=== PATIENT | female | born 1955 | race Caucasian/White ===

== ENCOUNTER 2023-03-29 17:27 | Inpatient (IN) | payer MEDICARE, MEDICAID, SELFPAY ==
--- NOTE | ~2023-03-29 | XR_ITS ---
EXAMINATION: XR HIP, RIGHT CLINICAL INFORMATION: Reason for Exam fall 3 days ago COMPARISON: None TECHNIQUE: Two views of the hip. One view of the pelvis. FINDINGS: Subtle lucency involving the right femoral head only appreciated on this single view, unclear if this could potentially reflect a nutrient channel however a nondisplaced fracture would be difficult to exclude. Mild degenerative changes of the hips with subchondral sclerosis. Soft tissues are unremarkable. XR/XR hip RT w PEL1V IMPRESSION: * Subtle lucency involving the right femoral head only appreciated on this single view, unclear if this could potentially reflect a nutrient channel however a nondisplaced fracture would be difficult to exclude. Consider a CT hip for further evaluation. * Mild degenerative changes of the hips.
--- NOTE | ~2023-03-29 | CT_ITS ---
EXAMINATION: CT HEAD WITHOUT CONTRAST CLINICAL INFORMATION: Fall 2 days ago. Rule out intracranial hypertension. COMPARISON: None. TECHNIQUE: Contiguous axial imaging was performed from the skullbase to vertex without intravenous administration of contrast. This CT examination was performed using dose optimization techniques as appropriate, variously including the following: *Automated exposure control *Adjustment of mA and/or kV according to patient size (this includes techniques or standardized protocols for targeted exams where dose is matched to indication/reason for exam; i.e. extremities or head) *Use of iterative reconstruction technique DLP: 679 mGy-cm. FINDINGS: The ventricles are prominent relative to the lateral sulcal spaces and sylvian fissures. There is paucity of the medial frontoparietal sulci around the interhemispheric fissure superior to the lateral ventricles. The callosal angle is narrowed, measuring 74 degrees. Smith index measures 0.35. There is no evidence of acute intracranial hemorrhage or territorial infarction. No abnormal mass effect or midline shift is seen. No extra-axial fluid collections are identified. The cerebellar tonsils are normal in position. Moderate diffuse parenchymal volume loss noted. The osseous structures and soft tissues are normal. The mastoid air cells and visualized portions of the paranasal sinuses are well aerated. CT/CT head/brain wo IV con IMPRESSION: No acute intracranial hemorrhage or territorial infarction. Prominence of the lateral and third ventricles with a narrow callosal angle and an increased Smith index. Imaging findings may reflect normal pressure hydrocephalus and clinical correlation is recommended.
--- NOTE | ~2023-03-29 | CT_ITS ---
EXAMINATION: CT HIP WITHOUT CONTRAST, RIGHT CLINICAL INFORMATION: Pain. Possible right femoral head fracture. COMPARISON: Right hip and pelvic radiographs dated 04/04/2023. TECHNIQUE: Contiguous axial CT images of the right hip were obtained without contrast. Multiplanar reformats were provided and reviewed. This CT examination was performed using dose optimization techniques as appropriate, variously including the following: *Automated exposure control *Adjustment of mA and/or kV according to patient size (this includes techniques or standardized protocols for targeted exams where dose is matched to indication/reason for exam; i.e. extremities or head) *Use of iterative reconstruction technique DLP: 164 mGy-cm FINDINGS: No acute fracture or dislocation. Femoral head well seated within the acetabulum. No significant joint space narrowing or marginal osteophytes. No subchondral sclerosis. No concerning lytic or blastic osseous lesion. No evidence of avascular necrosis. Partially visualized and distended urinary bladder. Otherwise, the visualized intrapelvic structures are grossly unremarkable. No abnormal soft tissue mass or fluid collection. No significant right hip joint effusion. The visualized muscles and tendons are grossly intact, however, evaluation is limited on CT examination. CT/CT hip RT wo IV con IMPRESSION: 1. No acute fracture or dislocation. No evidence of avascular necrosis. 2. Partially visualized and distended urinary bladder.
[2023-03-29 18:00] VITALS: BP 198/95; PULSE 89; RESP 18; TEMP 36.3; O2SAT 98
--- NOTE | 2023-03-29 18:12 | PC.ADMIT ---
PT ARRIVED ONTO THE UNIT AT 1800 VIA W/C VAN. PT IS DRESSED NEATLY AND GROOMED APPROPRIATELY. PT WAS A HOSPITAL TO HOSPITAL TRANSFER, ARRIVING FROM [facility]. PT. MAKES GOOD EYE CONTACT WHILE SPEAKING, AND SHE SPEAKS IN A NORMAL TONE AND VOLUME. SHE IS CALM AND COOPERATIVE. PT. WAS VERY HUNGRY WHEN SHE ARRIVED AND WAS GIVEN FOOD. PT. BP WAS 198/95, PULSE 89. PT. C/O ANGULO, DIZZINESS, AND BLURRY VISION. DENIES CHEST PAIN. REFINING EQUIPMENT OPERATOR PROVIDER, DR. CONNOLLY WAS NOTIFIED, AND PT. WAS PROVIDED WITH HYDRALAZINE 20MG WELL TYLENOL 650MG. N2N REPORTED THAT THIS PT HAS A LONG HX OF MEDICATION NON-COMPLIANCE, HOWEVER, PT TOOK THE ABOVE LISTED MEDICATIONS WITHOUT ISSUE. PT SIGNED A CONDITIONAL VOLUNTARY FORM. PT. WAS SENT TO [facility] FROM HER FACILITY, D/T A HYPO-MANIC STATE. N2N REPORTS THAT THIS PT. WILL SLEEP 20-45 MINUTES/NIGHT. N2N REPORTS THAT THIS PT. CAN BE VERY ACCUSATORY AND WILL STATE THAT SOMEONE DID SOMETHING TO HER, THATS HE HAS JUST DONE TO A STAFF PERSON. SHE ALSO REPORTED THAT THIS PT. WILL OFTEN REFUSE TO HAVE LABS COMPLETED. PT ENDORSES VH, I SEE BODIES ON THE BED SOMETIMES, I ALWAYS SEE BUGS . PT. DENIES AH, SI/HI.
[2023-03-29] MEDS: Acetaminophen 325 MG TABLET 650 MG PO (18:20)
[2023-03-29] MEDS: hydrALAZINE HCl 10 MG TABLET 20 MG PO (18:22)
[2023-03-29] MEDS: Divalproex Sodium ER 250 MG TAB.ER.24H PO ×2 (18:39→20:26)
--- NOTE | 2023-03-29 19:09 | P.CONHOSP_ITS ---
History of Present Illness Data of Consult Service Date: 03/29/23 Primary Care Provider: Unknown Physician HPI Reason for consult: Admission history and physical Pt is a 67-year-old female with a PMH significant for HTN, COPD, anemia, CKD 3, partial seizure disorder, schizoaffective disorder, bipolar disorder, depression who is admitted to [facility] for increasing agitated behavior, now in a manic state with vague visual hallucination of seeing bugs. Medical consult for admission H&P. At time of interview and examination patient noted to be in a manic phase with pressured speech and tangential thought. Patient thus incapable of providing a reliable HPI. Review of Systems Review of Systems: Unable to obtain due to patient's mentation. [facility] Social History Advance Directives: No Advance Directives Information Provided: No Meds Allergies Allergy/AdvReac Type Severity Reaction Status Date / Time almotriptan Allergy Unknown Unverified 03/29/23 18:08 aspirin Allergy Unknown Unverified 03/29/23 17:52 diphenhydramine Allergy Unknown Unverified 03/29/23 17:52 [From Benadryl] oxycodone Allergy Unknown Unverified 03/29/23 17:52 pseudoephedrine Allergy Unknown Unverified 03/29/23 17:52 mushroom AdvReac Abdominal Verified 03/29/23 17:43 Pain red dye Allergy Unknown Uncoded 03/29/23 17:52 sulpha drugs Allergy Unknown Uncoded 03/29/23 17:52 Active Medications: Current Medications Acetaminophen (Acetaminophen 325 Mg Tablet) 650 mg PO Q6H PRN PRN Reason: Headache/Pain Mild Scale (1-3) Last Admin: 03/29/23 18:20 Dose: 650 mg Al Hydroxide/Mg Hydroxide (Magnesium Hydrox/Alum Hydrox 30 Ml Oral.Susp) 30 ml PO Q6H PRN PRN Reason: Heartburn/Nausea Divalproex Sodium (Divalproex Sodium Er 250 Mg Tab.Er.24h) 250 mg PO BID MELONY Lorazepam (Lorazepam 0.5 Mg Tablet) 0.5 mg PO TID PRN PRN Reason: gay Magnesium Hydroxide (Milk Of Magnesia 30 Ml Oral.Susp) 30 ml PO DAILY PRN PRN Reason: Constipation Mirtazapine (Mirtazapine 7.5 Mg Tablet) 7.5 mg PO BEDTIME MELONY Nicotine Polacrilex (Nicotine Polacrilex 2 Mg Gum) 4 mg BUCCAL Q2H PRN PRN Reason: Nicotine Cravings Olanzapine (Olanzapine 2.5 Mg Tablet) 2.5 mg PO TID PRN PRN Reason: agitation Risperidone (Risperidone 3 Mg Tablet) 3 mg PO BEDTIME MELONY Physical Exam Vital Signs and Narrative: Vital Signs: Last Vital Signs Temp 97.4 F 03/29/23 18:00 Pulse 89 03/29/23 18:00 Resp 18 03/29/23 18:00 BP 198/95 H 03/29/23 18:00 Pulse Ox 98 03/29/23 18:00 O2 Del Method Room Air 03/29/23 18:00 General: AOx3, no acute distress Resp: CTA bilaterally CVS: S1, S2, RRR GI: +BS, NT, no distention Skin: No rash Neuro: Cranial nerves II-XII grossly intact bilaterally. Motor grossly intact bilaterally Extremities: Mild bilateral edema Psych: Manic with pressured speech and tangential thought Assessment and Plan (1) Routine history and physical examination of adult: Status: Acute Plan Pt is a 67-year-old female with a PMH significant for HTN, COPD, anemia, CKD 3, partial seizure disorder, schizoaffective disorder, bipolar disorder, depression who is admitted to [facility] for increasing agitated behavior, now in a manic state with vague visual hallucination of seeing bugs. Medical consult for admission H&P. Mood disorder Plan as per Psychiatry HTN Patient hypertensive at 198/95 at time of admission Pt recently given hydralazine, systolic pressure now in the 170s Continue amlodipine, hydralazine Closely monitor BP until it normalizes Partial seizure disorder Continue Keppra, Lamictal COPD Does not appear to be an acute exacerbation Continue home inhalers Thank you for allowing us to participate in the care of this patient. Signing off at this time. Please let us know if there are any acute complaints or questions. Time Spent With Patient Time: Total time managing care of this patient today ____ minutes.
[2023-03-29 19:30] VITALS: BP 174/86; PULSE 100; RESP 22; TEMP 36.2; O2SAT 97
[2023-03-29] MEDS: risperiDONE 3 MG TABLET PO (20:26)
[2023-03-29] MEDS: Mirtazapine 7.5 MG TABLET PO (20:26)
[2023-03-30] MEDS: LORazepam 0.5 MG TABLET PO ×2 (02:32→20:44)
[2023-03-30 06:39] LABS: Alanine Aminotransferase 16 U/L (0-31); Albumin Level 3.7 g/dL (3.5-5.0); Alkaline Phosphatase 99 U/L (39-117); Anion Gap 14 (12-20); Aspartate Amino Transferase 17 U/L (5-31); Bilirubin Total 0.3 mg/dL (0.0-1.0); Blood Urea Nitrogen 44 mg/dL (9-16); Carbon Dioxide 24 mmol/L (22-29); Chloride 110 mmol/L (96-108); Cholesterol 151 mg/dL; Estimated Glomerular Filt Rate 25; Glucose Random 106 mg/dL (60-115); HDL Cholesterol 42 mg/dL; LDL Cholesterol Calculated 96 mg/dl; Potassium 3.9 mmol/L (3.3-5.1); Sodium 144 mmol/L (135-145); Total Protein 6.8 g/dL (6.5-8.0); Triglycerides 66 mg/dL
[2023-03-30 08:38] LABS: Estimated Average Glucose 100 mg/dL; Hemoglobin A1c % 5.1 %
[2023-03-30] MEDS: Divalproex Sodium ER 250 MG TAB.ER.24H PO ×2 (09:15→20:29)
[2023-03-30] MEDS: Magnesium Hydrox/Alum Hydrox 30 ML ORAL.SUSP PO (11:17)
[2023-03-30] MEDS: Acetaminophen 325 MG TABLET 650 MG PO ×2 (11:17→20:36)
[2023-03-30 11:19] VITALS: BMI 24.3
--- NOTE | 2023-03-30 12:36 | HO.PSYADMNOT ---
HPI Date of Service: 03/30/23 Chief Complaint: gay Sources of Information: patient interviewed, chart reviewed and crisis/core team assessment reviewed Additional Sources of Information: Notes from half-way HPI Subjective Notes: Conditional Voluntary Healthcare Proxy: No Guardianship: No Medical Problems Affecting Mental Status: Yes (Chronic Renal failure) Narrative: Brooklynn is a 67-year-old white, single, disabled woman who has been at [facility]. Patient has been refusing medications selectively sometimes based on the color red. She has also been refusing trazodone, mirtazapine, melatonin because of nightmares. She has been showing some mild hypomanic symptoms. Previously she had been on lithium but it was discontinued because of renal failure Seroquel has been at times helpful in the past with her sleep and manic symptoms but she years self said it did not agree with her. She carries a diagnosis of bipolar/schizoaffective disorder. She is currently on Lamictal 275 mg, risperidone 3 mg,. Additionally she is being treated for seizures and is on Keppra 1000 mg b.i.d.,Levetiracetam 1000 mg b.i.d.. She has had a number of hospitalizations psychiatrically since she was in her 20s. She has had suicidal ideations and multiple attempts with cutting and overdoses. She denies any current suicidal ideations. She has been having some visual hallucinations. Past Psychiatric History: Numerous inpatient hospitalizations since she was in her 20s Medical Evaluation Reviewed: Hospitalist William Pending [facility] Narrative: Positive for seizure disorder, hypertension, COPD, headaches Family History: Unknown Social History: Brooklynn is 1 of 4 siblings. Her father is living, age 94 and she has minimal to no contact with him. She does have 1 brother and 2 sisters, 1 of whom lives in [place] and she is in touch with her. 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 She has been in her current half-way placement since October of 2022. She has never and has no children Substance History: None Trauma History: None Diagnostics Vital Signs (24Hr): Vital Signs - 24 hr 03/29/23 18:00 03/29/23 19:30 Temperature 97.4 F 97.2 F Pulse Rate 89 100 Respiratory Rate 18 22 H Blood Pressure 198/95 H 174/86 H Pulse Oximetry 98 97 Oxygen Delivery Method Room Air Room Air BMI result Body Mass Index 24.3 Labs 03/30/23 06:19 Labs: Laboratory Results - last 48 hr 03/30/23 03/30/23 06:19 06:19 Sodium 144 Potassium 3.9 Chloride 110 H Carbon Dioxide 24 Anion Gap 14 BUN 44 H Creatinine 2.01 H Estim Creat Clear Calc TNP Estimated GFR 25 Random Glucose 106 Estimat Average Glucose 100 Hemoglobin A1c % 5.1 Calcium 10.0 Total Bilirubin 0.3 AST 17 ALT 16 Alkaline Phosphatase 99 Total Protein 6.8 Albumin 3.7 Triglycerides 66 Cholesterol 151 LDL Cholesterol, Calc 96 HDL Cholesterol 42 Meds/Allergies Meds Home Medications Medication Instructions Recorded Confirmed Type Lidocaine Viscous 15 ml buccal Q6-8H PRN Pain 03/30/23 03/30/23 History Maalox Plus 30 ml PO Q6-8H PRN Indigestion 03/30/23 03/30/23 History Multi Minerals 1 tab PO DAILY 03/30/23 03/30/23 History Risperdal 3 mg DAILY 03/30/23 03/30/23 History Tums 500 500 mg PO PRN Heartburn 03/30/23 History Vitamin 03/30/23 History acetaminophen 2 tab PO Q4-5H PRN Fever Or Pain 03/30/23 03/30/23 History amlodipine 5 mg PO DAILY 03/30/23 03/30/23 History bethanechol chloride 10 mg TID 03/30/23 03/30/23 History calcium carbonate 500 mg PO Q3-6H PRN Heartburn 03/30/23 03/30/23 History famotidine 20 mg PO DAILY@0630 03/30/23 03/30/23 History ferrous sulfate 325 mg PO DAILY 03/30/23 03/30/23 History hydralazine 10 mg tablet 10 mg PO Q6-8H PRN Hypertension 03/30/23 03/30/23 History lamotrigine 100 mg tablet 100 mg PO QPM 03/30/23 03/30/23 History (Lamictal) lamotrigine 150 mg tablet 150 mg PO DAILY 03/30/23 03/30/23 History (Lamictal) lamotrigine 25 mg tablet (Lamictal) 5 mg PO QPM 03/30/23 03/30/23 History levetiracetam 1,000 mg tablet 1,000 mg PO BID 03/30/23 03/30/23 History (Keppra) loperamide 2 mg PO Q6-8H PRN Diarrhea 03/30/23 03/30/23 History melatonin 12 mg PO QPM 03/30/23 03/30/23 History mirtazapine 7.5 mg PO QPM 03/30/23 03/30/23 History ondansetron 4 mg PO Q6-8H PRN Nausea And 03/30/23 03/30/23 History Vomiting oxybutynin chloride 5 mg PO BID 03/30/23 03/30/23 History polyethylene glycol 3350 17 g PO DAILY PRN Constipation 03/30/23 03/30/23 History quetiapine 50 mg tablet (Seroquel) 50 mg PO QPM 03/30/23 03/30/23 History senna 2 tab PO BID PRN Constipation 03/30/23 03/30/23 History simethicone 80 mg PO Q8-10H PRN Flatulence 03/30/23 03/30/23 History Allergies Allergies Allergy/AdvReac Type Severity Reaction Status Date / Time almotriptan Allergy Unknown Verified 03/30/23 11:28 aspirin Allergy Unknown Verified 03/30/23 11:28 diphenhydramine Allergy Unknown Verified 03/30/23 11:28 [From Benadryl] oxycodone Allergy Unknown Verified 03/30/23 11:28 pseudoephedrine Allergy Unknown Verified 03/30/23 11:28 mushroom AdvReac Abdominal Verified 03/30/23 11:28 Pain red dye Allergy Unknown Uncoded 03/29/23 17:52 sulpha drugs Allergy Unknown Uncoded 03/29/23 17:52 Mental Status Exam Mental Status Exam Narrative: Brooklynn was seen the morning after her admission. She is alert, oriented to place, person, the year and the month. She is able to give moderate amount of adequate information. Speech is normal. Good eye contact. Affect is appropriate and varied. No signs of mood elevation or euphoria. No acute signs of psychosis but admits to some visual hallucinations which she attributes to some of her medications which she has been refusing including trazodone, melatonin and mirtazapine. She denies any suicidal ideations. Cognitively she is intact. Judgment is intact Assessment & Plan Assessment & Plan (1) Bipolar 1 disorder, mixed, mild: Status: Acute Code(s): F31.61 - Bipolar disorder, current episode mixed, mild Plan Current home medications were reviewed and continued. Contacts to be made with her half-way in treaters next week by treatment team here. No changes were made today Patient educated on: diagnosis and medication risk/benefits Reason for continued inpatient stay Substantial Risk for: med/psych decompensation Statement Statement: I have reviewed the history and physical and performed a pertinent examination on my patient. No changes have occurred unless specified. If the History and Physical was not performed prior to admission, the Hospitalist's service will be consulted for completing the admission physical. Time Spent With Patient Time: Total time managing care of this patient today ____ minutes.
[2023-03-30] MEDS: Calcium Carbonate 750 MG TAB.CHEW PO (17:19)
[2023-03-30 18:00] VITALS: BP 190/86; PULSE 97; RESP 20; TEMP 36.1; O2SAT 98
[2023-03-30] MEDS: lamoTRIgine 25 MG TABLET PO (20:28)
[2023-03-30] MEDS: oxyBUTYnin chloride 5 MG TABLET PO (20:28)
[2023-03-30] MEDS: lamoTRIgine 100 MG TABLET PO (20:28)
[2023-03-30] MEDS: levETIRAcetam 1,000 MG TABLET 1000 MG PO (20:29)
[2023-03-30] MEDS: risperiDONE 3 MG TABLET PO (20:29)
[2023-03-30] MEDS: hydrALAZINE HCl 10 MG TABLET PO (20:29)
[2023-03-30 22:01] VITALS: BP 175/80; PULSE 98; O2SAT 97
[2023-03-31] MEDS: Famotidine 20 MG TABLET PO (04:47)
[2023-03-31 05:15] VITALS: BP 191/91; PULSE 90; RESP 20
[2023-03-31] MEDS: amLODIPine Besylate 5 MG TABLET PO (05:38)
[2023-03-31 08:53] VITALS: BP 153/67; PULSE 79; RESP 16; TEMP 36.6; O2SAT 97
[2023-03-31] MEDS: oxyBUTYnin chloride 5 MG TABLET PO ×2 (08:58→20:39)
[2023-03-31] MEDS: Divalproex Sodium ER 250 MG TAB.ER.24H PO ×2 (08:58→20:39)
[2023-03-31] MEDS: levETIRAcetam 1,000 MG TABLET 1000 MG PO ×2 (08:58→20:41)
[2023-03-31] MEDS: Multivitamin TABLET 1 TAB PO (08:59)
[2023-03-31] MEDS: Ferrous Sulfate 324 MG TABLET.DR PO (08:59)
[2023-03-31] MEDS: lamoTRIgine 25 MG TABLET 150 MG PO ×2 (09:00→20:42)
[2023-03-31] MEDS: risperiDONE 3 MG TABLET PO ×2 (09:00→20:40)
--- NOTE | 2023-03-31 10:18 | P.PNPSI_ITS ---
Subjective Subjective Date of Service: 03/31/23 Reason For Visit: gay Subjective Notes: Conditional Voluntary Healthcare Proxy: No Guardianship: No Medical Problems Affecting Mental Status: No Interim History: Patient was seen and discussed in rounds today. Records and plans were reviewed. She did have some elevation of her blood pressure and was seen by the hospitalist and they recommended increasing her Norvasc to 10 mg which I did. This morning her blood pressure is slightly 153/67. She wanted me to take out her Remeron, Seroquel, melatonin and trazodone which she has not taken for some time and states that they gave her nightmares. I did discontinue them. On admission orders she was placed on Depakote by Dr. Ramírez villarreal which I kept her on for now. It may need to be reviewed and increased to a more appropriate dosage this week. Eating adequately and slept okay. No other changes were made Medication Compliance: Yes Side effects from medications: Yes (Mentioned above) Attending Groups: Yes Review of Systems Acute medical concerns: No Review of Systems Review of Systems Yes all other systems are reviewed and are negative Mental Status Exam Mental Status Exam Narrative: In today's visit she is alert, oriented and pleasant. Normal speech. Good eye contact. Affect is appropriate and varied. No signs of depression or hypomania. No signs of psychosis. Cognitively he is intact. Judgment is intact Diagnostics Vital Signs (24Hr): Vital Signs - 24 hr 03/30/23 18:00 03/30/23 22:01 03/31/23 05:15 Temperature 97 F Pulse Rate 97 98 90 Respiratory Rate 20 20 Blood Pressure 190/86 H 175/80 H 191/91 H Pulse Oximetry 98 97 Oxygen Delivery Method Room Air Room Air 03/31/23 08:53 Temperature 98 F Pulse Rate 79 Respiratory Rate 16 Blood Pressure 153/67 H Pulse Oximetry 97 Oxygen Delivery Method Room Air BMI result Body Mass Index 24.3 Labs 03/30/23 06:19 Labs: Laboratory Results - last 48 hr 03/30/23 03/30/23 06:19 06:19 Sodium 144 Potassium 3.9 Chloride 110 H Carbon Dioxide 24 Anion Gap 14 BUN 44 H Creatinine 2.01 H Estim Creat Clear Calc TNP Estimated GFR 25 Random Glucose 106 Estimat Average Glucose 100 Hemoglobin A1c % 5.1 Calcium 10.0 Total Bilirubin 0.3 AST 17 ALT 16 Alkaline Phosphatase 99 Total Protein 6.8 Albumin 3.7 Triglycerides 66 Cholesterol 151 LDL Cholesterol, Calc 96 HDL Cholesterol 42 Medications Medications Current Medications Acetaminophen (Acetaminophen 325 Mg Tablet) 650 mg PO Q6H PRN PRN Reason: Headache/Pain Mild Scale (1-3) Last Admin: 03/30/23 20:36 Dose: 650 mg Al Hydroxide/Mg Hydroxide (Magnesium Hydrox/Alum Hydrox 30 Ml Oral.Susp) 30 ml PO Q6H PRN PRN Reason: Heartburn/Nausea Last Admin: 03/30/23 11:17 Dose: 30 ml Al Hydroxide/Mg Hydroxide (Magnesium Hydrox/Alum Hydrox 30 Ml Oral.Susp) 30 ml PO Q6H PRN PRN Reason: Indigestion Amlodipine Besylate (Amlodipine Besylate 5 Mg Tablet) 5 mg PO DAILY [facility] Last Admin: 03/31/23 05:38 Dose: 5 mg Bethanechol Chloride (Bethanechol Chloride 10 Mg Tablet) 10 mg PO TID [facility] Last Admin: 03/31/23 08:59 Dose: 10 mg Calcium Carbonate (Calcium Carbonate 750 Mg Tab.Chew) 750 mg PO Q3H PRN PRN Reason: Heartburn Last Admin: 03/30/23 17:19 Dose: 750 mg Divalproex Sodium (Divalproex Sodium Er 250 Mg Tab.Er.24h) 250 mg PO BID [facility] Last Admin: 03/31/23 08:58 Dose: 250 mg Famotidine (Famotidine 20 Mg Tablet) 20 mg PO DAILY@0630 [facility] Last Admin: 03/31/23 04:47 Dose: 20 mg Ferrous Sulfate (Ferrous Sulfate 324 Mg Tablet.Dr) 324 mg PO DAILY [facility] Last Admin: 03/31/23 08:59 Dose: 324 mg Hydralazine HCl (Hydralazine Hcl 10 Mg Tablet) 10 mg PO Q6H PRN; Protocol PRN Reason: Hypertension Last Admin: 03/30/23 20:29 Dose: 10 mg Lamotrigine (Lamotrigine 25 Mg Tablet) 150 mg PO DAILY [facility] Last Admin: 03/31/23 09:00 Dose: 150 mg Lamotrigine (Lamotrigine 100 Mg Tablet) 100 mg PO BEDTIME [facility] Last Admin: 03/30/23 20:28 Dose: 100 mg Lamotrigine (Lamotrigine 25 Mg Tablet) 25 mg PO BEDTIME [facility] Last Admin: 03/30/23 20:28 Dose: 25 mg Levetiracetam (Levetiracetam 1,000 Mg Tablet) 1,000 mg PO BID [facility] Last Admin: 03/31/23 08:58 Dose: 1,000 mg Lidocaine HCl (Lidocaine Hcl Viscous 2 % 15 Ml Solution) 15 ml MUCOUS MEM Q6H PRN PRN Reason: Pain Loperamide HCl (Loperamide Hcl 2 Mg Capsule) 2 mg PO Q6H PRN PRN Reason: Diarrhea Lorazepam (Lorazepam 0.5 Mg Tablet) 0.5 mg PO TID PRN PRN Reason: gay Last Admin: 03/30/23 20:44 Dose: 0.5 mg Magnesium Hydroxide (Milk Of Magnesia 30 Ml Oral.Susp) 30 ml PO DAILY PRN PRN Reason: Constipation Melatonin (Melatonin 3 Mg Tablet) 12 mg PO BEDTIME [facility] Last Admin: 03/30/23 20:48 Dose: Not Given Mirtazapine (Mirtazapine 7.5 Mg Tablet) 7.5 mg PO BEDTIME MELONY Last Admin: 03/30/23 20:49 Dose: Not Given Mirtazapine (Mirtazapine 7.5 Mg Tablet) 7.5 mg PO BEDTIME MELONY Last Admin: 03/30/23 20:49 Dose: Not Given Multivitamins/Vitamin C (Multivitamin Tablet) 1 tab PO DAILY [facility] Last Admin: 03/31/23 08:59 Dose: 1 tab Nicotine Polacrilex (Nicotine Polacrilex 2 Mg Gum) 4 mg BUCCAL Q2H PRN PRN Reason: Nicotine Cravings Olanzapine (Olanzapine 2.5 Mg Tablet) 2.5 mg PO TID PRN PRN Reason: agitation Ondansetron HCl (Ondansetron Odt 4 Mg Tab.Rapdis) 4 mg TRANSLINGU Q6H PRN PRN Reason: Nausea And Vomiting Oxybutynin Chloride (Oxybutynin Chloride 5 Mg Tablet) 5 mg PO BID [facility] Last Admin: 03/31/23 08:58 Dose: 5 mg Polyethylene Glycol (Polyethylene Glycol 3350 17 Gm Powd.Pack) 17 gm PO DAILY PRN PRN Reason: Constipation Quetiapine Fumarate (Quetiapine Fumarate 50 Mg Tablet) 50 mg PO BEDTIME [facility] Last Admin: 03/30/23 20:40 Dose: Not Given Risperidone (Risperidone 3 Mg Tablet) 3 mg PO BEDTIME MELONY Last Admin: 03/30/23 20:29 Dose: 3 mg Risperidone (Risperidone 3 Mg Tablet) 3 mg PO DAILY MELONY Last Admin: 03/31/23 09:00 Dose: 3 mg Senna (Sennosides 8.6 Mg Tablet) 17.2 mg PO BID PRN PRN Reason: Constipation Simethicone (Simethicone 80 Mg Tab.Chew) 80 mg PO Q8H PRN PRN Reason: Flatulence Allergies Allergies Allergy/AdvReac Type Severity Reaction Status Date / Time almotriptan Allergy Unknown Verified 03/30/23 11:28 aspirin Allergy Unknown Verified 03/30/23 11:28 diphenhydramine Allergy Unknown Verified 03/30/23 11:28 [From Benadryl] oxycodone Allergy Unknown Verified 03/30/23 11:28 pseudoephedrine Allergy Unknown Verified 03/30/23 11:28 mushroom AdvReac Abdominal Verified 03/30/23 11:28 Pain red dye Allergy Unknown Uncoded 03/29/23 17:52 sulpha drugs Allergy Unknown Uncoded 03/29/23 17:52 Assessment & Plan Assessment & Plan (1) Bipolar 1 disorder, mixed, mild: Status: Acute Code(s): F31.61 - Bipolar disorder, current episode mixed, mild Plan Current home medications were reviewed and continued. Contacts to be made with her senior care in treaters next week by treatment team here. No changes were made today 03/31: Continue current regimen and plans and discontinued the medications that she has not been taking. Norvasc was increased to 10 mg Patient educated on: medication risk/benefits Reason for continued inpatient stay Substantial Risk for: med/psych decompensation Time Spent With Patient Time: Total time managing care of this patient today ____ minutes.
[2023-03-31 14:06] LABS: Appearance Urine Clear; Color Urine Yellow; Glucose Urine UA Negative (Negative); Leukocyte Esterase Urine Negative (Negative); Nitrite Urine Negative (Negative); PH 6.5 (5.0-9.0); Specific Gravity - Urine <= 1.005 (1.005-1.025); UMIC TRIGGER UACC YES; Urine Blood Negative (Negative); Urine Ketones Negative (Negative); Urine Protein 100 (2+) mg/dL (Neg-Trace)
[2023-03-31 14:08] LABS: Bacteria Urine None Seen (None Seen); Hyaline Casts Urine 0-2 /LPF (0-2); RBC Urine 0-2 /HPF (0-2); Squamous Epithelial Cell Urine 0-2 /HPF (0-2); WBC Urine 0-5 /HPF (0-5)
[2023-03-31] MEDS: Calcium Carbonate 750 MG TAB.CHEW PO (16:26)
[2023-03-31] MEDS: Ondansetron ODT 4 MG TAB.RAPDIS TRANSLINGU (16:26)
[2023-03-31 17:15] VITALS: BP 177/79; PULSE 95; RESP 18; TEMP 36.6; O2SAT 97
--- NOTE | 2023-03-31 19:37 | PC.NURSE ---
Pt.A & O X 4 and a reliable buyer tobacco head. Reports she backed herself up to bed with walker but misjudged and only partially sat on bed and slid gently to floor onto her right side without striking her head. She denies acute pain, able to move all extremities. No outward rotation or shortening of legs. Assisted off of floor and into bed. VSS. Dr. Nicole and Nursing coin machine collector supervisor notified. Pt. does not want sister notified. Bed alarm initiated.
[2023-03-31] MEDS: lamoTRIgine 100 MG TABLET PO (20:41)
[2023-03-31] MEDS: LORazepam 0.5 MG TABLET PO (21:05)
[2023-03-31] MEDS: Acetaminophen 325 MG TABLET 650 MG PO (21:05)
[2023-03-31] MEDS: lamoTRIgine 25 MG TABLET PO (22:40)
[2023-04-01] MEDS: LORazepam 0.5 MG TABLET PO ×2 (03:01→20:20)
[2023-04-01] MEDS: Acetaminophen 325 MG TABLET 650 MG PO ×2 (03:33→12:32)
[2023-04-01] MEDS: Famotidine 20 MG TABLET PO (06:50)
[2023-04-01] MEDS: oxyBUTYnin chloride 5 MG TABLET PO ×2 (08:36→20:18)
[2023-04-01] MEDS: levETIRAcetam 1,000 MG TABLET 1000 MG PO ×2 (08:36→20:19)
[2023-04-01] MEDS: Divalproex Sodium ER 250 MG TAB.ER.24H PO ×2 (08:36→20:21)
[2023-04-01] MEDS: Ferrous Sulfate 324 MG TABLET.DR PO (08:37)
[2023-04-01] MEDS: amLODIPine Besylate 10 MG TABLET PO (08:37)
[2023-04-01] MEDS: risperiDONE 3 MG TABLET PO ×2 (08:37→20:21)
[2023-04-01] MEDS: Multivitamin TABLET 1 TAB PO (08:38)
--- NOTE | 2023-04-01 09:27 | P.PNPSI_ITS ---
Subjective Subjective Date of Service: 04/01/23 Reason For Visit: gay Subjective Notes: Section 12B Interim History: The nursing staff reported the patient felt yesterday and she had been on one-to-one for safety. She had been restless at night and she received at 03:00 o'clock in the morning p.r.n. medications. She slept only 4 hours. The staff has noticed that she is alert and oriented x3 medication compliance denies suicidal or homicidal ideation but she had no needs been manic. On interview the patient denies new symptoms I offered long-acting a typical neuroleptics such as Invega Sustenna instead of Risperdal p.o. and she will think about it. Mental Status Exam Mental Status Exam Patient Appearance: Well Grooomed and Appropriate Patient Orientation: Person and Situation Level of Consciousness: Awake and Appropriate Patient Behavior: Guarded and Passive Mood Description: Withdrawn Patient Cognition Impaired: Yes Ability to Follow Directions: Good Speech Pattern: Impoverished Hallucinations: Auditory Delusions: Paranoid Ideation and Ideas of Reference Thought Process: Racing and Distracted Thought Content: positive for [place] of Ideas and positive for [place] Judgement: Fair Diagnostics Vital Signs (24Hr): Vital Signs - 24 hr 03/31/23 17:15 Temperature 97.9 F Pulse Rate 95 Respiratory Rate 18 Blood Pressure 177/79 H Pulse Oximetry 97 Oxygen Delivery Method Room Air BMI result Body Mass Index 24.3 Labs 03/30/23 06:19 Labs: Laboratory Results - last 48 hr 03/31/23 13:40 Urine Color Yellow Urine Appearance Clear Urine pH 6.5 Ur Specific [place] <= 1.005 Urine Protein 100 (2+) H Urine Glucose (UA) Negative Urine Ketones Negative Urine Blood Negative Urine Nitrite Negative Ur Leukocyte Esterase Negative Urine RBC 0-2 Urine WBC 0-5 Ur Squamous Epith Cells 0-2 Urine Bacteria None Seen Hyaline Casts 0-2 Medications Medications Current Medications Acetaminophen (Acetaminophen 325 Mg Tablet) 650 mg PO Q6H PRN PRN Reason: Headache/Pain Mild Scale (1-3) Last Admin: 04/01/23 03:33 Dose: 650 mg Al Hydroxide/Mg Hydroxide (Magnesium Hydrox/Alum Hydrox 30 Ml Oral.Susp) 30 ml PO Q6H PRN PRN Reason: Indigestion Amlodipine Besylate (Amlodipine Besylate 10 Mg Tablet) 10 mg PO DAILY [facility] Last Admin: 04/01/23 08:37 Dose: 10 mg Bethanechol Chloride (Bethanechol Chloride 10 Mg Tablet) 10 mg PO TID [facility] Last Admin: 04/01/23 08:36 Dose: 10 mg Calcium Carbonate (Calcium Carbonate 750 Mg Tab.Chew) 750 mg PO Q3H PRN PRN Reason: Heartburn Last Admin: 03/31/23 16:26 Dose: 750 mg Divalproex Sodium (Divalproex Sodium Er 250 Mg Tab.Er.24h) 250 mg PO BID [facility] Last Admin: 04/01/23 08:36 Dose: 250 mg Famotidine (Famotidine 20 Mg Tablet) 20 mg PO DAILY@0630 [facility] Last Admin: 04/01/23 06:50 Dose: 20 mg Ferrous Sulfate (Ferrous Sulfate 324 Mg Tablet.Dr) 324 mg PO DAILY [facility] Last Admin: 04/01/23 08:37 Dose: 324 mg Hydralazine HCl (Hydralazine Hcl 10 Mg Tablet) 10 mg PO Q6H PRN; Protocol PRN Reason: Hypertension Last Admin: 03/30/23 20:29 Dose: 10 mg Lamotrigine (Lamotrigine 25 Mg Tablet) 150 mg PO DAILY [facility] Last Admin: 03/31/23 20:42 Dose: 150 mg Lamotrigine (Lamotrigine 100 Mg Tablet) 100 mg PO BEDTIME [facility] Last Admin: 03/31/23 20:41 Dose: 100 mg Lamotrigine (Lamotrigine 25 Mg Tablet) 25 mg PO BEDTIME [facility] Last Admin: 03/31/23 22:40 Dose: 25 mg Levetiracetam (Levetiracetam 1,000 Mg Tablet) 1,000 mg PO BID [facility] Last Admin: 04/01/23 08:36 Dose: 1,000 mg Lidocaine HCl (Lidocaine Hcl Viscous 2 % 15 Ml Solution) 15 ml MUCOUS MEM Q6H PRN PRN Reason: Pain Loperamide HCl (Loperamide Hcl 2 Mg Capsule) 2 mg PO Q6H PRN PRN Reason: Diarrhea Lorazepam (Lorazepam 0.5 Mg Tablet) 0.5 mg PO TID PRN PRN Reason: gay Last Admin: 04/01/23 03:01 Dose: 0.5 mg Magnesium Hydroxide (Milk Of Magnesia 30 Ml Oral.Susp) 30 ml PO DAILY PRN PRN Reason: Constipation Multivitamins/Vitamin C (Multivitamin Tablet) 1 tab PO DAILY [facility] Last Admin: 04/01/23 08:38 Dose: 1 tab Nicotine Polacrilex (Nicotine Polacrilex 2 Mg Gum) 4 mg BUCCAL Q2H PRN PRN Reason: Nicotine Cravings Olanzapine (Olanzapine 2.5 Mg Tablet) 2.5 mg PO TID PRN PRN Reason: agitation Ondansetron HCl (Ondansetron Odt 4 Mg Tab.Rapdis) 4 mg TRANSLINGU Q6H PRN PRN Reason: Nausea And Vomiting Last Admin: 03/31/23 16:26 Dose: 4 mg Oxybutynin Chloride (Oxybutynin Chloride 5 Mg Tablet) 5 mg PO BID [facility] Last Admin: 04/01/23 08:36 Dose: 5 mg Polyethylene Glycol (Polyethylene Glycol 3350 17 Gm Powd.Pack) 17 gm PO DAILY PRN PRN Reason: Constipation Risperidone (Risperidone 3 Mg Tablet) 3 mg PO BEDTIME [facility] Last Admin: 03/31/23 20:40 Dose: 3 mg Risperidone (Risperidone 3 Mg Tablet) 3 mg PO DAILY [facility] Last Admin: 04/01/23 08:37 Dose: 3 mg Senna (Sennosides 8.6 Mg Tablet) 17.2 mg PO BID PRN PRN Reason: Constipation Simethicone (Simethicone 80 Mg Tab.Chew) 80 mg PO Q8H PRN PRN Reason: Flatulence Allergies Allergies Allergy/AdvReac Type Severity Reaction Status Date / Time almotriptan Allergy Unknown Verified 03/30/23 11:28 aspirin Allergy Unknown Verified 03/30/23 11:28 diphenhydramine Allergy Unknown Verified 03/30/23 11:28 [From Benadryl] oxycodone Allergy Unknown Verified 03/30/23 11:28 pseudoephedrine Allergy Unknown Verified 03/30/23 11:28 mushroom AdvReac Abdominal Verified 03/30/23 11:28 Pain red dye Allergy Unknown Uncoded 03/29/23 17:52 sulpha drugs Allergy Unknown Uncoded 03/29/23 17:52 Assessment & Plan Assessment & Plan (1) Bipolar 1 disorder, mixed, mild: Status: Acute Code(s): F31.61 - Bipolar disorder, current episode mixed, mild Plan The patient is an elderly female with a prior history of bipolar disorder with several prior admissions into the hospital for psychosis and manic decompensation. The patient was initially brought to the emergency room of another hospital with signs and symptoms of gay and psychosis. Plan 1. Gather collateral information, we will call her daughter and find out what is her baseline. 2. Continue Risperdal 3 mg p.o. b.i.d. and other neuroleptics. I offered Invega Sustenna instead of Risperdal p.o. 3. Continue medical workout. 4. Reassessment with results. Reason for continued inpatient stay Substantial Risk for: inability to function, rapid decompensation and med/psych decompensation Time Spent With Patient Time: Total time managing care of this patient today __20__ minutes.
[2023-04-01 10:03] VITALS: BP 138/72; PULSE 92; RESP 18; TEMP 36.7; O2SAT 98
[2023-04-01] MEDS: Calcium Carbonate 750 MG TAB.CHEW PO (17:33)
[2023-04-01 18:00] VITALS: BP 134/61; PULSE 102; RESP 16
[2023-04-01 19:00] VITALS: BP 190/95; PULSE 95; RESP 16; TEMP 36.4; O2SAT 100
[2023-04-01] MEDS: lamoTRIgine 25 MG TABLET PO (20:21)
[2023-04-01] MEDS: lamoTRIgine 100 MG TABLET PO (20:22)
[2023-04-01] MEDS: hydrALAZINE HCl 10 MG TABLET PO (20:34)
[2023-04-02] MEDS: OLANZapine 2.5 MG TABLET PO (01:50)
[2023-04-02 06:00] VITALS: BP 180/81; PULSE 81; RESP 16; O2SAT 98
[2023-04-02] MEDS: Famotidine 20 MG TABLET PO (06:29)
[2023-04-02] MEDS: hydrALAZINE HCl 10 MG TABLET PO (06:47)
[2023-04-02] MEDS: lamoTRIgine 25 MG TABLET 150 MG PO (07:48)
[2023-04-02 07:50] VITALS: BP 166/84; PULSE 84; RESP 18; TEMP 36.3; O2SAT 98
[2023-04-02] MEDS: risperiDONE 3 MG TABLET PO ×2 (07:50→20:06)
[2023-04-02] MEDS: Ferrous Sulfate 324 MG TABLET.DR PO (07:51)
[2023-04-02] MEDS: oxyBUTYnin chloride 5 MG TABLET PO ×2 (07:51→20:06)
[2023-04-02] MEDS: levETIRAcetam 1,000 MG TABLET 1000 MG PO ×2 (07:51→20:05)
[2023-04-02] MEDS: amLODIPine Besylate 10 MG TABLET PO (07:52)
[2023-04-02] MEDS: Multivitamin TABLET 1 TAB PO (07:52)
[2023-04-02] MEDS: Divalproex Sodium ER 250 MG TAB.ER.24H PO (07:52)
--- NOTE | 2023-04-02 09:29 | P.PNPSI_ITS ---
Subjective Subjective Date of Service: 04/02/23 Reason For Visit: gay Subjective Notes: Conditional Voluntary Interim History: The nursing staff reported the patient had been compliant with medications but her blood pressure was high. She remains on one-to-one and she slept 5 hours. She is alert and oriented. Review her labs and we are going to repeat new Depakote level and other lab work. On interview the patient reports nightmares, agreed to start Prazosin at night. Mental Status Exam Mental Status Exam Patient Appearance: Well Grooomed and Appropriate Patient Orientation: Person and Situation Level of Consciousness: Awake Patient Behavior: Passive and Suspicious Mood Description: Withdrawn Affect Description: Constricted Ability to Follow Directions: Good Speech Pattern: Clear Hallucinations: Visual Delusions: Paranoid Ideation Thought Process: Distracted and Slowed Thinking Thought Content: positive for [place] and positive for [place] of [place] Judgement: Fair Diagnostics Vital Signs (24Hr): Vital Signs - 24 hr 04/01/23 10:03 04/01/23 18:00 04/01/23 19:00 Temperature 98.1 F 97.5 F Pulse Rate 92 102 H 95 Respiratory Rate 18 16 16 Blood Pressure 138/72 134/61 190/95 H Pulse Oximetry 98 100 Oxygen Delivery Method Room Air Room Air 04/02/23 06:00 Temperature Pulse Rate 81 Respiratory Rate 16 Blood Pressure 180/81 H Pulse Oximetry 98 Oxygen Delivery Method Room Air BMI result Body Mass Index 24.3 Labs 03/30/23 06:19 Labs: Laboratory Results - last 48 hr 03/31/23 13:40 Urine Color Yellow Urine Appearance Clear Urine pH 6.5 Ur Specific [place] <= 1.005 Urine Protein 100 (2+) H Urine Glucose (UA) Negative Urine Ketones Negative Urine Blood Negative Urine Nitrite Negative Ur Leukocyte Esterase Negative Urine RBC 0-2 Urine WBC 0-5 Ur Squamous Epith Cells 0-2 Urine Bacteria None Seen Hyaline Casts 0-2 Medications Medications Current Medications Acetaminophen (Acetaminophen 325 Mg Tablet) 650 mg PO Q6H PRN PRN Reason: Headache/Pain Mild Scale (1-3) Last Admin: 04/01/23 12:32 Dose: 650 mg Al Hydroxide/Mg Hydroxide (Magnesium Hydrox/Alum Hydrox 30 Ml Oral.Susp) 30 ml PO Q6H PRN PRN Reason: Indigestion Amlodipine Besylate (Amlodipine Besylate 10 Mg Tablet) 10 mg PO DAILY [facility] Last Admin: 04/02/23 07:52 Dose: 10 mg Bethanechol Chloride (Bethanechol Chloride 10 Mg Tablet) 10 mg PO TID [facility] Last Admin: 04/02/23 07:51 Dose: 10 mg Calcium Carbonate (Calcium Carbonate 750 Mg Tab.Chew) 750 mg PO Q3H PRN PRN Reason: Heartburn Last Admin: 04/01/23 17:33 Dose: 750 mg Divalproex Sodium (Divalproex Sodium Er 250 Mg Tab.Er.24h) 250 mg PO BID [facility] Last Admin: 04/02/23 07:52 Dose: 250 mg Famotidine (Famotidine 20 Mg Tablet) 20 mg PO DAILY@0630 [facility] Last Admin: 04/02/23 06:29 Dose: 20 mg Ferrous Sulfate (Ferrous Sulfate 324 Mg Tablet.Dr) 324 mg PO DAILY [facility] Last Admin: 04/02/23 07:51 Dose: 324 mg Hydralazine HCl (Hydralazine Hcl 10 Mg Tablet) 10 mg PO Q6H PRN; Protocol PRN Reason: Hypertension Last Admin: 04/02/23 06:47 Dose: 10 mg Lamotrigine (Lamotrigine 25 Mg Tablet) 150 mg PO DAILY [facility] Last Admin: 04/02/23 07:48 Dose: 150 mg Lamotrigine (Lamotrigine 100 Mg Tablet) 100 mg PO BEDTIME [facility] Last Admin: 04/01/23 20:22 Dose: 100 mg Lamotrigine (Lamotrigine 25 Mg Tablet) 25 mg PO BEDTIME [facility] Last Admin: 04/01/23 20:21 Dose: 25 mg Levetiracetam (Levetiracetam 1,000 Mg Tablet) 1,000 mg PO BID [facility] Last Admin: 04/02/23 07:51 Dose: 1,000 mg Lidocaine HCl (Lidocaine Hcl Viscous 2 % 15 Ml Solution) 15 ml MUCOUS MEM Q6H PRN PRN Reason: Pain Loperamide HCl (Loperamide Hcl 2 Mg Capsule) 2 mg PO Q6H PRN PRN Reason: Diarrhea Lorazepam (Lorazepam 0.5 Mg Tablet) 0.5 mg PO TID PRN PRN Reason: gay Last Admin: 04/01/23 20:20 Dose: 0.5 mg Magnesium Hydroxide (Milk Of Magnesia 30 Ml Oral.Susp) 30 ml PO DAILY PRN PRN Reason: Constipation Multivitamins/Vitamin C (Multivitamin Tablet) 1 tab PO DAILY [facility] Last Admin: 04/02/23 07:52 Dose: 1 tab Nicotine Polacrilex (Nicotine Polacrilex 2 Mg Gum) 4 mg BUCCAL Q2H PRN PRN Reason: Nicotine Cravings Olanzapine (Olanzapine 2.5 Mg Tablet) 2.5 mg PO TID PRN PRN Reason: agitation Last Admin: 04/02/23 01:50 Dose: 2.5 mg Ondansetron HCl (Ondansetron Odt 4 Mg Tab.Rapdis) 4 mg TRANSLINGU Q6H PRN PRN Reason: Nausea And Vomiting Last Admin: 03/31/23 16:26 Dose: 4 mg Oxybutynin Chloride (Oxybutynin Chloride 5 Mg Tablet) 5 mg PO BID [facility] Last Admin: 04/02/23 07:51 Dose: 5 mg Polyethylene Glycol (Polyethylene Glycol 3350 17 Gm Powd.Pack) 17 gm PO DAILY PRN PRN Reason: Constipation Risperidone (Risperidone 3 Mg Tablet) 3 mg PO BEDTIME [facility] Last Admin: 04/01/23 20:21 Dose: 3 mg Risperidone (Risperidone 3 Mg Tablet) 3 mg PO DAILY [facility] Last Admin: 04/02/23 07:50 Dose: 3 mg Senna (Sennosides 8.6 Mg Tablet) 17.2 mg PO BID PRN PRN Reason: Constipation Simethicone (Simethicone 80 Mg Tab.Chew) 80 mg PO Q8H PRN PRN Reason: Flatulence Allergies Allergies Allergy/AdvReac Type Severity Reaction Status Date / Time almotriptan Allergy Unknown Verified 03/30/23 11:28 aspirin Allergy Unknown Verified 03/30/23 11:28 diphenhydramine Allergy Unknown Verified 03/30/23 11:28 [From Benadryl] oxycodone Allergy Unknown Verified 03/30/23 11:28 pseudoephedrine Allergy Unknown Verified 03/30/23 11:28 mushroom AdvReac Abdominal Verified 03/30/23 11:28 Pain red dye Allergy Unknown Uncoded 03/29/23 17:52 sulpha drugs Allergy Unknown Uncoded 03/29/23 17:52 Assessment & Plan Assessment & Plan (1) Bipolar 1 disorder, mixed, mild: Status: Acute Code(s): F31.61 - Bipolar disorder, current episode mixed, mild Plan The patient is an elderly female with a prior history of bipolar disorder with several prior admissions into the hospital for psychosis and manic decompensation. The patient was initially brought to the emergency room of another hospital with signs and symptoms of gay and psychosis. Plan 1. Gather collateral information, we will call her daughter and find out what is her baseline. 2. Continue Risperdal 3 mg p.o. b.i.d. and other neuroleptics. I offered Invega Sustenna instead of Risperdal p.o. 3. Continue medical workout. 4. Reassessment with results. 5. Hospital consult due to increased blood pressure. 6. Depakote level and other lab work for tomorrow morning. 7. Prazosin 2 mg po qhs for night chua. Reason for continued inpatient stay Substantial Risk for: inability to function, rapid decompensation and med/psych decompensation Time Spent With Patient Time: Total time managing care of this patient today _20___ minutes.
[2023-04-02] MEDS: Acetaminophen 325 MG TABLET 650 MG PO ×2 (11:01→18:34)
[2023-04-02 15:51] VITALS: BP 160/71; PULSE 101
[2023-04-02 15:55] VITALS: BP 141/63; PULSE 96
[2023-04-02 18:00] VITALS: BP 187/84; PULSE 96; RESP 18; TEMP 36.3; O2SAT 98
[2023-04-02] MEDS: Prazosin HCL 1 MG CAPSULE 2 MG PO (20:04)
[2023-04-02] MEDS: lisinopriL 10 MG TABLET PO (20:06)
[2023-04-02] MEDS: lamoTRIgine 100 MG TABLET PO (20:07)
[2023-04-02] MEDS: lamoTRIgine 25 MG TABLET PO (20:07)
[2023-04-02] MEDS: LORazepam 0.5 MG TABLET PO (20:07)
[2023-04-02] MEDS: Ondansetron ODT 4 MG TAB.RAPDIS TRANSLINGU (20:13)
[2023-04-02 23:18] VITALS: BP 118/56; PULSE 104
[2023-04-03] MEDS: Divalproex Sodium ER 250 MG TAB.ER.24H PO ×3 (00:18→21:16)
[2023-04-03] MEDS: Acetaminophen 325 MG TABLET 650 MG PO ×2 (00:52→12:27)
[2023-04-03] MEDS: OLANZapine 2.5 MG TABLET PO (00:52)
[2023-04-03] MEDS: Famotidine 20 MG TABLET PO (05:48)
[2023-04-03] MEDS: Calcium Carbonate 750 MG TAB.CHEW PO (05:49)
[2023-04-03 07:45] VITALS: BP 90/58; PULSE 86; RESP 18; TEMP 36.8; O2SAT 99
[2023-04-03 08:03] LABS: MANUAL DIFF FLAG NO
[2023-04-03 08:06] LABS: Basophils Absolute Auto 0.1 X10*3/uL (0.0-0.2); Basophils Percent Auto 0.9 % (0-2); Eosinophils Absolute Auto 0.2 X10*3/uL (0.0-0.4); Eosinophils Percent Auto 2.8 % (0-4); Hematocrit 35.6 % (37.0-47.0); Hemoglobin 11.3 g/dl (12.0-16.0); Imm Gran Abs Auto 0.06 X10*3/uL (0.00-0.03); Imm Gran Pct Auto 1.1 % (0.0-0.4); Lymphocytes Absolute Auto 1.2 X10*3/uL (1.2-4.9); Lymphocytes Percent Auto 20.6 % (20-40); Mean Corpuscular HGB Conc 31.7 g/dl (31.0-35.0); Mean Corpuscular Hemoglobin 28.3 pg (27.0-33.0); Mean Platelet Volume 9.4 fL (9.4-12.3); Monocytes Absolute Auto 0.5 X10*3/uL (0.1-1.2); Monocytes Percent Auto 9.3 % (2-11); Neutrophils Absolute Auto 3.7 x10*3/uL (2.0-8.3); Neutrophils Percent Auto 65.3 % (45-73); Platelet Count 178 X10*3/uL (160-400); White Blood Count 5.7 X10*3/uL (4.8-10.8)
[2023-04-03] MEDS: Ferrous Sulfate 324 MG TABLET.DR PO (08:12)
[2023-04-03] MEDS: lamoTRIgine 25 MG TABLET 150 MG PO (08:12)
[2023-04-03] MEDS: Multivitamin TABLET 1 TAB PO (08:12)
[2023-04-03] MEDS: risperiDONE 3 MG TABLET PO ×2 (08:13→21:17)
[2023-04-03] MEDS: levETIRAcetam 1,000 MG TABLET 1000 MG PO ×2 (08:13→21:17)
[2023-04-03] MEDS: oxyBUTYnin chloride 5 MG TABLET PO ×2 (08:13→21:16)
[2023-04-03 08:27] LABS: Alanine Aminotransferase 16 U/L (0-31); Albumin Level 3.7 g/dL (3.5-5.0); Alkaline Phosphatase 98 U/L (39-117); Anion Gap 15 (12-20); Aspartate Amino Transferase 15 U/L (5-31); Bilirubin Direct < 0.2 mg/dL (0.0-0.5); Bilirubin Total 0.2 mg/dL (0.0-1.0); Blood Urea Nitrogen 45 mg/dL (9-16); Calcium 10.1 mg/dL (8.4-10.2); Carbon Dioxide 24 mmol/L (22-29); Chloride 108 mmol/L (96-108); Creatinine Clr Calc Pharmacy 21.7; Estimated Glomerular Filt Rate 22; Glucose Random 121 mg/dL (60-115); Potassium 4.2 mmol/L (3.3-5.1); Sodium 143 mmol/L (135-145); Total Protein 6.9 g/dL (6.5-8.0)
[2023-04-03 08:57] LABS: Valproate 18.8 mcg/mL (50.0-100.0)
--- NOTE | 2023-04-03 10:06 | P.PNPSI_ITS ---
Subjective Subjective Date of Service: 04/03/23 Reason For Visit: gay Subjective Notes: Conditional Voluntary Interim History: The nursing staff reported that yesterday the patient was complaining of headache with her blood pressure was high. We talk with the medical team to address that. She had been anxious apathetic. Her blood pressure has been high but later today in the morning was 90/50 so we hold his blood pressure meds. The social research assistant reported that she has a bed hold on the facility that she came from. On interview the patient reports mild anxiety, yesterday we started prazosin to target nightmares but she reported no improvement of her nightmares. Mental Status Exam Mental Status Exam Patient Appearance: Well Grooomed and Appropriate Patient Orientation: Person and Situation Level of Consciousness: Awake and Appropriate Patient Behavior: Appropriate, Cooperative and Passive Mood Description: Calm Affect Description: Constricted Patient Cognition Impaired: Yes Ability to Follow Directions: Good Speech Pattern: Clear Hallucinations: None Delusions: Ideas of Reference Thought Process: Distracted and Slowed Thinking Thought Content: positive for [place] and positive for [place] Judgement: Fair Diagnostics Vital Signs (24Hr): Vital Signs - 24 hr 04/02/23 15:51 04/02/23 15:55 04/02/23 18:00 Temperature 97.4 F Pulse Rate 101 H 96 96 Respiratory Rate 18 Blood Pressure 160/71 H 141/63 H 187/84 H Pulse Oximetry 98 Oxygen Delivery Method Room Air 04/02/23 23:18 04/03/23 07:45 Temperature 98.2 F Pulse Rate 104 H 86 Respiratory Rate 18 Blood Pressure 118/56 L 90/58 L Pulse Oximetry 99 Oxygen Delivery Method Room Air BMI result Body Mass Index 24.3 Labs 04/03/23 07:58 04/03/23 07:58 Labs: Laboratory Results - last 48 hr 04/03/23 04/03/23 04/03/23 07:58 07:58 07:58 WBC 5.7 RBC 4.00 L Hgb 11.3 L Hct 35.6 L MCV 89.0 MCH 28.3 MCHC 31.7 RDW 14.0 Plt Count 178 MPV 9.4 Immature Gran % (Auto) 1.1 H Neut % (Auto) 65.3 Lymph % (Auto) 20.6 [place] % (Auto) 9.3 Eos % (Auto) 2.8 Baso % (Auto) 0.9 Lymph # (Auto) 1.2 [place] # (Auto) 0.5 Eos # (Auto) 0.2 Baso # (Auto) 0.1 Abs Immat Gran (auto) 0.06 H Absolute Neuts (auto) 3.7 Absolute Nucleated RBC 0.000 Nucleated RBC % (auto) 0.0 Sodium 143 Potassium 4.2 Chloride 108 Carbon Dioxide 24 Anion Gap 15 BUN 45 H Creatinine 2.19 H Estim Creat Clear Calc 21.7 Estimated GFR 22 Random Glucose 121 H Calcium 10.1 Total Bilirubin 0.2 Direct Bilirubin < 0.2 AST 15 ALT 16 Alkaline Phosphatase 98 Total Protein 6.9 Albumin 3.7 Valproic Acid 18.8 L Medications Medications Current Medications Acetaminophen (Acetaminophen 325 Mg Tablet) 650 mg PO Q6H PRN PRN Reason: Headache/Pain Mild Scale (1-3) Last Admin: 04/03/23 00:52 Dose: 650 mg Al Hydroxide/Mg Hydroxide (Magnesium Hydrox/Alum Hydrox 30 Ml Oral.Susp) 30 ml PO Q6H PRN PRN Reason: Indigestion Amlodipine Besylate (Amlodipine Besylate 10 Mg Tablet) 10 mg PO DAILY [facility] Last Admin: 04/03/23 08:19 Dose: Not Given Bethanechol Chloride (Bethanechol Chloride 10 Mg Tablet) 10 mg PO TID [facility] Last Admin: 04/03/23 08:13 Dose: 10 mg Calcium Carbonate (Calcium Carbonate 750 Mg Tab.Chew) 750 mg PO Q3H PRN PRN Reason: Heartburn Last Admin: 04/03/23 05:49 Dose: 750 mg Divalproex Sodium (Divalproex Sodium Er 250 Mg Tab.Er.24h) 250 mg PO BID [facility] Last Admin: 04/03/23 08:12 Dose: 250 mg Famotidine (Famotidine 20 Mg Tablet) 20 mg PO DAILY@0630 [facility] Last Admin: 04/03/23 05:48 Dose: 20 mg Ferrous Sulfate (Ferrous Sulfate 324 Mg Tablet.Dr) 324 mg PO DAILY [facility] Last Admin: 04/03/23 08:12 Dose: 324 mg Hydralazine HCl (Hydralazine Hcl 10 Mg Tablet) 10 mg PO Q6H PRN; Protocol PRN Reason: Hypertension Last Admin: 04/02/23 06:47 Dose: 10 mg Lamotrigine (Lamotrigine 25 Mg Tablet) 150 mg PO DAILY [facility] Last Admin: 04/03/23 08:12 Dose: 150 mg Lamotrigine (Lamotrigine 100 Mg Tablet) 100 mg PO BEDTIME [facility] Last Admin: 04/02/23 20:07 Dose: 100 mg Lamotrigine (Lamotrigine 25 Mg Tablet) 25 mg PO BEDTIME [facility] Last Admin: 04/02/23 20:07 Dose: 25 mg Levetiracetam (Levetiracetam 1,000 Mg Tablet) 1,000 mg PO BID [facility] Last Admin: 04/03/23 08:13 Dose: 1,000 mg Lidocaine HCl (Lidocaine Hcl Viscous 2 % 15 Ml Solution) 15 ml MUCOUS MEM Q6H PRN PRN Reason: Pain Lisinopril (Lisinopril 10 Mg Tablet) 10 mg PO BEDTIME [facility]; Protocol Last Admin: 04/02/23 20:06 Dose: 10 mg Loperamide HCl (Loperamide Hcl 2 Mg Capsule) 2 mg PO Q6H PRN PRN Reason: Diarrhea Lorazepam (Lorazepam 0.5 Mg Tablet) 0.5 mg PO TID PRN PRN Reason: gay Last Admin: 04/02/23 20:07 Dose: 0.5 mg Magnesium Hydroxide (Milk Of Magnesia 30 Ml Oral.Susp) 30 ml PO DAILY PRN PRN Reason: Constipation Multivitamins/Vitamin C (Multivitamin Tablet) 1 tab PO DAILY [facility] Last Admin: 04/03/23 08:12 Dose: 1 tab Nicotine Polacrilex (Nicotine Polacrilex 2 Mg Gum) 4 mg BUCCAL Q2H PRN PRN Reason: Nicotine Cravings Olanzapine (Olanzapine 2.5 Mg Tablet) 2.5 mg PO TID PRN PRN Reason: agitation Last Admin: 04/03/23 00:52 Dose: 2.5 mg Ondansetron HCl (Ondansetron Odt 4 Mg Tab.Rapdis) 4 mg TRANSLINGU Q6H PRN PRN Reason: Nausea And Vomiting Last Admin: 04/02/23 20:13 Dose: 4 mg Oxybutynin Chloride (Oxybutynin Chloride 5 Mg Tablet) 5 mg PO BID [facility] Last Admin: 04/03/23 08:13 Dose: 5 mg Polyethylene Glycol (Polyethylene Glycol 3350 17 Gm Powd.Pack) 17 gm PO DAILY PRN PRN Reason: Constipation Prazosin HCl (Prazosin Hcl 1 Mg Capsule) 2 mg PO BEDTIME [facility]; Protocol Last Admin: 04/02/23 20:04 Dose: 2 mg Risperidone (Risperidone 3 Mg Tablet) 3 mg PO BEDTIME [facility] Last Admin: 04/02/23 20:06 Dose: 3 mg Risperidone (Risperidone 3 Mg Tablet) 3 mg PO DAILY [facility] Last Admin: 04/03/23 08:13 Dose: 3 mg Senna (Sennosides 8.6 Mg Tablet) 17.2 mg PO BID PRN PRN Reason: Constipation Simethicone (Simethicone 80 Mg Tab.Chew) 80 mg PO Q8H PRN PRN Reason: Flatulence Allergies Allergies Allergy/AdvReac Type Severity Reaction Status Date / Time almotriptan Allergy Unknown Verified 03/30/23 11:28 aspirin Allergy Unknown Verified 03/30/23 11:28 diphenhydramine Allergy Unknown Verified 03/30/23 11:28 [From Benadryl] oxycodone Allergy Unknown Verified 03/30/23 11:28 pseudoephedrine Allergy Unknown Verified 03/30/23 11:28 mushroom AdvReac Abdominal Verified 03/30/23 11:28 Pain red dye Allergy Unknown Uncoded 03/29/23 17:52 sulpha drugs Allergy Unknown Uncoded 03/29/23 17:52 Assessment & Plan Assessment & Plan (1) Bipolar 1 disorder, mixed, mild: Status: Acute Code(s): F31.61 - Bipolar disorder, current episode mixed, mild Plan The patient is an elderly female with a prior history of bipolar disorder with several prior admissions into the hospital for psychosis and manic decompensation. The patient was initially brought to the emergency room of another hospital with signs and symptoms of gay and psychosis. Plan 1. Gather collateral information, we will call her daughter and find out what is her baseline. 2. Continue Risperdal 3 mg p.o. b.i.d. and other neuroleptics. I offered Invega Sustenna instead of Risperdal p.o. 3. Continue medical workout. 4. Reassessment with results. 5. Hospital consult due to increased blood pressure. 6. Depakote level and other lab work for tomorrow morning. 7. Prazosin 2 mg po qhs for night chua on 04/02 Reason for continued inpatient stay Substantial Risk for: inability to function, rapid decompensation and med/psych decompensation Time Spent With Patient Time: Total time managing care of this patient today __20__ minutes.
[2023-04-03 18:00] VITALS: BP 126/61; PULSE 84; RESP 18; TEMP 36.5; O2SAT 97
[2023-04-03] MEDS: lisinopriL 10 MG TABLET PO (21:16)
[2023-04-03] MEDS: lamoTRIgine 100 MG TABLET PO (21:17)
[2023-04-03] MEDS: lamoTRIgine 25 MG TABLET PO (21:17)
[2023-04-03] MEDS: Prazosin HCL 1 MG CAPSULE 2 MG PO (21:17)
[2023-04-04] MEDS: Acetaminophen 325 MG TABLET 650 MG PO ×3 (01:52→22:52)
[2023-04-04] MEDS: Famotidine 20 MG TABLET PO (05:49)
[2023-04-04 07:00] VITALS: BMI 25.9
[2023-04-04 07:30] VITALS: BP 143/74; PULSE 98; RESP 18; TEMP 36.1; O2SAT 96
[2023-04-04] MEDS: Ondansetron ODT 4 MG TAB.RAPDIS TRANSLINGU (09:06)
[2023-04-04] MEDS: lamoTRIgine 25 MG TABLET 150 MG PO (11:14)
[2023-04-04] MEDS: Divalproex Sodium ER 250 MG TAB.ER.24H PO ×2 (11:17→20:00)
[2023-04-04] MEDS: levETIRAcetam 1,000 MG TABLET 1000 MG PO ×2 (11:17→20:00)
[2023-04-04] MEDS: oxyBUTYnin chloride 5 MG TABLET PO ×2 (11:17→19:59)
[2023-04-04] MEDS: amLODIPine Besylate 10 MG TABLET PO (11:17)
[2023-04-04] MEDS: Ferrous Sulfate 324 MG TABLET.DR PO (11:17)
[2023-04-04] MEDS: risperiDONE 3 MG TABLET PO ×2 (11:18→20:00)
[2023-04-04] MEDS: Multivitamin TABLET 1 TAB PO (11:18)
--- NOTE | 2023-04-04 14:52 | HO.PSYCHPN ---
Subjective Subjective Date of Service: 04/04/23 Reason For Visit: gay Subjective Notes: Conditional Voluntary Interim History: The nursing staff reported the patient had vomited in the morning and she complained of right side pain. I ordered a CT scan head and a hip x-ray. On interview, The patient reported that she is feeling very tired No new symptoms. Mental Status Exam Mental Status Exam Patient Appearance: Appropriate Patient Orientation: Person and Situation Level of Consciousness: Awake and Appropriate Patient Behavior: Guarded and Passive Mood Description: Withdrawn Affect Description: Constricted Patient Cognition Impaired: Yes Ability to Follow Directions: Good Speech Pattern: Clear Hallucinations: None Delusions: Not Present Thought Process: Linear Thought Content: positive for [place] and positive for [place] Oriented Judgement: Fair Diagnostics Vital Signs (24Hr): Vital Signs - 24 hr 04/03/23 18:00 04/04/23 07:30 Temperature 97.7 F 97.0 F Pulse Rate 84 98 Respiratory Rate 18 18 Blood Pressure 126/61 143/74 H Pulse Oximetry 97 96 Oxygen Delivery Method Room Air Room Air BMI result Body Mass Index 25.9 Labs 04/03/23 07:58 04/03/23 07:58 Labs: Laboratory Results - last 48 hr 04/03/23 04/03/23 04/03/23 07:58 07:58 07:58 WBC 5.7 RBC 4.00 L Hgb 11.3 L Hct 35.6 L MCV 89.0 MCH 28.3 MCHC 31.7 RDW 14.0 Plt Count 178 MPV 9.4 Immature Gran % (Auto) 1.1 H Neut % (Auto) 65.3 Lymph % (Auto) 20.6 [place] % (Auto) 9.3 Eos % (Auto) 2.8 Baso % (Auto) 0.9 Lymph # (Auto) 1.2 [place] # (Auto) 0.5 Eos # (Auto) 0.2 Baso # (Auto) 0.1 Abs Immat Gran (auto) 0.06 H Absolute Neuts (auto) 3.7 Absolute Nucleated RBC 0.000 Nucleated RBC % (auto) 0.0 Sodium 143 Potassium 4.2 Chloride 108 Carbon Dioxide 24 Anion Gap 15 BUN 45 H Creatinine 2.19 H Estim Creat Clear Calc 21.7 Estimated GFR 22 Random Glucose 121 H Calcium 10.1 Total Bilirubin 0.2 Direct Bilirubin < 0.2 AST 15 ALT 16 Alkaline Phosphatase 98 Total Protein 6.9 Albumin 3.7 Valproic Acid 18.8 L Medications Medications Current Medications Acetaminophen (Acetaminophen 325 Mg Tablet) 650 mg PO Q6H PRN PRN Reason: Headache/Pain Mild Scale (1-3) Last Admin: 04/04/23 01:52 Dose: 650 mg Al Hydroxide/Mg Hydroxide (Magnesium Hydrox/Alum Hydrox 30 Ml Oral.Susp) 30 ml PO Q6H PRN PRN Reason: Indigestion Amlodipine Besylate (Amlodipine Besylate 10 Mg Tablet) 10 mg PO DAILY [facility] Last Admin: 04/04/23 11:17 Dose: 10 mg Bethanechol Chloride (Bethanechol Chloride 10 Mg Tablet) 10 mg PO TID [facility] Last Admin: 04/04/23 14:42 Dose: 10 mg Calcium Carbonate (Calcium Carbonate 750 Mg Tab.Chew) 750 mg PO Q3H PRN PRN Reason: Heartburn Last Admin: 04/03/23 05:49 Dose: 750 mg Divalproex Sodium (Divalproex Sodium Er 250 Mg Tab.Er.24h) 250 mg PO BID [facility] Last Admin: 04/04/23 11:17 Dose: 250 mg Famotidine (Famotidine 20 Mg Tablet) 20 mg PO DAILY@0630 [facility] Last Admin: 04/04/23 05:49 Dose: 20 mg Ferrous Sulfate (Ferrous Sulfate 324 Mg Tablet.Dr) 324 mg PO DAILY [facility] Last Admin: 04/04/23 11:17 Dose: 324 mg Hydralazine HCl (Hydralazine Hcl 10 Mg Tablet) 10 mg PO Q6H PRN; Protocol PRN Reason: Hypertension Last Admin: 04/02/23 06:47 Dose: 10 mg Lamotrigine (Lamotrigine 25 Mg Tablet) 150 mg PO DAILY [facility] Last Admin: 04/04/23 11:14 Dose: 150 mg Lamotrigine (Lamotrigine 100 Mg Tablet) 100 mg PO BEDTIME [facility] Last Admin: 04/03/23 21:17 Dose: 100 mg Lamotrigine (Lamotrigine 25 Mg Tablet) 25 mg PO BEDTIME [facility] Last Admin: 04/03/23 21:17 Dose: 25 mg Levetiracetam (Levetiracetam 1,000 Mg Tablet) 1,000 mg PO BID [facility] Last Admin: 04/04/23 11:17 Dose: 1,000 mg Lidocaine HCl (Lidocaine Hcl Viscous 2 % 15 Ml Solution) 15 ml MUCOUS MEM Q6H PRN PRN Reason: Pain Lisinopril (Lisinopril 10 Mg Tablet) 10 mg PO BEDTIME [facility]; Protocol Last Admin: 04/03/23 21:16 Dose: 10 mg Loperamide HCl (Loperamide Hcl 2 Mg Capsule) 2 mg PO Q6H PRN PRN Reason: Diarrhea Lorazepam (Lorazepam 0.5 Mg Tablet) 0.5 mg PO Q8H PRN PRN Reason: Anxiety Magnesium Hydroxide (Milk Of Magnesia 30 Ml Oral.Susp) 30 ml PO DAILY PRN PRN Reason: Constipation Multivitamins/Vitamin C (Multivitamin Tablet) 1 tab PO DAILY [facility] Last Admin: 04/04/23 11:18 Dose: 1 tab Nicotine Polacrilex (Nicotine Polacrilex 2 Mg Gum) 4 mg BUCCAL Q2H PRN PRN Reason: Nicotine Cravings Olanzapine (Olanzapine 2.5 Mg Tablet) 2.5 mg PO TID PRN PRN Reason: agitation Last Admin: 04/03/23 00:52 Dose: 2.5 mg Ondansetron HCl (Ondansetron Odt 4 Mg Tab.Rapdis) 4 mg TRANSLINGU Q6H PRN PRN Reason: Nausea And Vomiting Last Admin: 04/04/23 09:06 Dose: 4 mg Oxybutynin Chloride (Oxybutynin Chloride 5 Mg Tablet) 5 mg PO BID [facility] Last Admin: 04/04/23 11:17 Dose: 5 mg Polyethylene Glycol (Polyethylene Glycol 3350 17 Gm Powd.Pack) 17 gm PO DAILY PRN PRN Reason: Constipation Prazosin HCl (Prazosin Hcl 1 Mg Capsule) 2 mg PO BEDTIME [facility]; Protocol Last Admin: 04/03/23 21:17 Dose: 2 mg Risperidone (Risperidone 3 Mg Tablet) 3 mg PO BEDTIME [facility] Last Admin: 04/03/23 21:17 Dose: 3 mg Risperidone (Risperidone 3 Mg Tablet) 3 mg PO DAILY [facility] Last Admin: 04/04/23 11:18 Dose: 3 mg Senna (Sennosides 8.6 Mg Tablet) 17.2 mg PO BID PRN PRN Reason: Constipation Simethicone (Simethicone 80 Mg Tab.Chew) 80 mg PO Q8H PRN PRN Reason: Flatulence Allergies Allergies Allergy/AdvReac Type Severity Reaction Status Date / Time almotriptan Allergy Unknown Verified 03/30/23 11:28 aspirin Allergy Unknown Verified 03/30/23 11:28 diphenhydramine Allergy Unknown Verified 03/30/23 11:28 [From Benadryl] oxycodone Allergy Unknown Verified 03/30/23 11:28 pseudoephedrine Allergy Unknown Verified 03/30/23 11:28 mushroom AdvReac Abdominal Verified 03/30/23 11:28 Pain red dye Allergy Unknown Uncoded 03/29/23 17:52 sulpha drugs Allergy Unknown Uncoded 03/29/23 17:52 Assessment & Plan Assessment & Plan (1) Bipolar 1 disorder, mixed, mild: Status: Acute Code(s): F31.61 - Bipolar disorder, current episode mixed, mild Plan The patient is an elderly female with a prior history of bipolar disorder with several prior admissions into the hospital for psychosis and manic decompensation. The patient was initially brought to the emergency room of another hospital with signs and symptoms of gay and psychosis. Plan 1. Gather collateral information, we will call her daughter and find out what is her baseline. 2. Continue Risperdal 3 mg p.o. b.i.d. and other neuroleptics. I offered Invega Sustenna instead of Risperdal p.o. 3. Continue medical workout. 4. Reassessment with results. 5. Hospital consult due to increased blood pressure. 6. Depakote level and other lab work for tomorrow morning. 7. Prazosin 2 mg po qhs for night chua on 04/02 Reason for continued inpatient stay Substantial Risk for: inability to function, rapid decompensation and med/psych decompensation Time Spent With Patient Time: Total time managing care of this patient today __20__ minutes.
[2023-04-04 18:00] VITALS: BP 142/65; PULSE 106; RESP 18; TEMP 36.7; O2SAT 96
[2023-04-04] MEDS: Prazosin HCL 1 MG CAPSULE 2 MG PO (20:00)
[2023-04-04] MEDS: lisinopriL 10 MG TABLET PO (20:00)
[2023-04-04] MEDS: lamoTRIgine 100 MG TABLET PO (20:00)
[2023-04-04] MEDS: lamoTRIgine 25 MG TABLET PO (20:00)
[2023-04-04] MEDS: LORazepam 0.5 MG TABLET PO (22:52)
[2023-04-04] MEDS: Calcium Carbonate 750 MG TAB.CHEW PO (23:19)
--- NOTE | 2023-04-05 05:08 | PC.NURSE ---
Patient in bed asleep at 23:00. No complaints or reports of concerns.
[2023-04-05] MEDS: Famotidine 20 MG TABLET PO (05:29)
[2023-04-05] MEDS: Acetaminophen 325 MG TABLET 650 MG PO ×2 (05:29→21:20)
[2023-04-05 07:30] VITALS: BP 121/69; PULSE 87; RESP 18; TEMP 36.2; O2SAT 95
[2023-04-05] MEDS: lamoTRIgine 25 MG TABLET 150 MG PO (08:10)
[2023-04-05] MEDS: levETIRAcetam 1,000 MG TABLET 1000 MG PO ×2 (08:13→20:40)
[2023-04-05] MEDS: amLODIPine Besylate 10 MG TABLET PO (08:13)
[2023-04-05] MEDS: Ferrous Sulfate 324 MG TABLET.DR PO (08:13)
[2023-04-05] MEDS: Multivitamin TABLET 1 TAB PO (08:13)
[2023-04-05] MEDS: Divalproex Sodium ER 250 MG TAB.ER.24H PO ×2 (08:13→20:39)
[2023-04-05] MEDS: oxyBUTYnin chloride 5 MG TABLET PO ×2 (08:13→20:41)
[2023-04-05] MEDS: risperiDONE 3 MG TABLET PO ×2 (08:13→20:42)
--- NOTE | 2023-04-05 12:20 | HO.PSYCHPN ---
Subjective Subjective Date of Service: 04/05/23 Reason For Visit: gay Subjective Notes: Conditional Voluntary Interim History: The nursing staff reported that yesterday the patient was in bed, and hypoactive since she was a little sick. There is no evidence of hypomania and she needed help to go to the bathroom. She has been pleasant cooperative and one-to-one for safety. On interview the patient denies new symptoms of she feels tired. Yesterday I called the hospitalist because she was vomiting and we did a CT scan and apparently there is slight symptoms of intracranial hypertension so neurology is going to be called. Mental Status Exam Mental Status Exam Patient Appearance: Well Grooomed and Appropriate Patient Orientation: Person and Situation Level of Consciousness: Awake and Appropriate Patient Behavior: Guarded and Passive Mood Description: Withdrawn Affect Description: Constricted Patient Cognition Impaired: Yes Ability to Follow Directions: Good Speech Pattern: Clear Hallucinations: None Delusions: Not Present Thought Process: Distracted Thought Content: positive for [place] and positive for Circumstantial Judgement: Fair Diagnostics Vital Signs (24Hr): Vital Signs - 24 hr 04/04/23 18:00 04/05/23 07:30 Temperature 98.1 F 97.2 F Pulse Rate 106 H 87 Respiratory Rate 18 18 Blood Pressure 142/65 H 121/69 Pulse Oximetry 96 95 Oxygen Delivery Method Room Air Room Air BMI result Body Mass Index 25.9 Labs 04/03/23 07:58 04/03/23 07:58 Imaging Radiology Impressions: ITS Impressions Hip/Pelvis X-Ray 04/04/23 09:59 IMPRESSION: * Subtle lucency involving the right femoral head only appreciated on this single view, unclear if this could potentially reflect a nutrient channel however a nondisplaced fracture would be difficult to exclude. Consider a CT hip for further evaluation. * Mild degenerative changes of the hips. Head CT 04/04/23 10:56 IMPRESSION: No acute intracranial hemorrhage or territorial infarction. Prominence of the lateral and third ventricles with a narrow callosal angle and an increased Smith index. Imaging findings may reflect normal pressure hydrocephalus and clinical correlation is recommended. Medications Medications Current Medications Acetaminophen (Acetaminophen 325 Mg Tablet) 650 mg PO Q6H PRN PRN Reason: Headache/Pain Mild Scale (1-3) Last Admin: 04/05/23 05:29 Dose: 650 mg Al Hydroxide/Mg Hydroxide (Magnesium Hydrox/Alum Hydrox 30 Ml Oral.Susp) 30 ml PO Q6H PRN PRN Reason: Indigestion Amlodipine Besylate (Amlodipine Besylate 10 Mg Tablet) 10 mg PO DAILY [facility] BEDS AT [facility] Last Admin: 04/05/23 08:13 Dose: 10 mg Bethanechol Chloride (Bethanechol Chloride 10 Mg Tablet) 10 mg PO TID [facility] Last Admin: 04/05/23 08:14 Dose: 10 mg Calcium Carbonate (Calcium Carbonate 750 Mg Tab.Chew) 750 mg PO Q3H PRN PRN Reason: Heartburn Last Admin: 04/04/23 23:19 Dose: 750 mg Divalproex Sodium (Divalproex Sodium Er 250 Mg Tab.Er.24h) 250 mg PO BID [facility] 234 BEDS AT THE [facility] Last Admin: 04/05/23 08:13 Dose: 250 mg Famotidine (Famotidine 20 Mg Tablet) 20 mg PO DAILY@0630 [facility] 234 BEDS AT THE [facility] Last Admin: 04/05/23 05:29 Dose: 20 mg Ferrous Sulfate (Ferrous Sulfate 324 Mg Tablet.Dr) 324 mg PO DAILY [facility]S [facility]CLUDE 234 BEDS AT THE [facility] Last Admin: 04/05/23 08:13 Dose: 324 mg Hydralazine HCl (Hydralazine Hcl 10 Mg Tablet) 10 mg PO Q6H PRN; Protocol PRN Reason: Hypertension Last Admin: 04/02/23 06:47 Dose: 10 mg Lamotrigine (Lamotrigine 25 Mg Tablet) 150 mg PO DAILY [facility] 234 BEDS AT THE [facility] Last Admin: 04/05/23 08:10 Dose: 150 mg Lamotrigine (Lamotrigine 100 Mg Tablet) 100 mg PO BEDTIME [facility] Last Admin: 04/04/23 20:00 Dose: 100 mg Lamotrigine (Lamotrigine 25 Mg Tablet) 25 mg PO BEDTIME [facility] Last Admin: 04/04/23 20:00 Dose: 25 mg Levetiracetam (Levetiracetam 1,000 Mg Tablet) 1,000 mg PO BID [facility] 234 BEDS AT [facility] Last Admin: 04/05/23 08:13 Dose: 1,000 mg Lidocaine HCl (Lidocaine Hcl Viscous 2 % 15 Ml Solution) 15 ml MUCOUS MEM Q6H PRN PRN Reason: Pain Lisinopril (Lisinopril 10 Mg Tablet) 10 mg PO BEDTIME [facility]S [facility]CLUDE 234 BEDS AT THE [facility]; Protocol Last Admin: 04/04/23 20:00 Dose: 10 mg Loperamide HCl (Loperamide Hcl 2 Mg Capsule) 2 mg PO Q6H PRN PRN Reason: Diarrhea Lorazepam (Lorazepam 0.5 Mg Tablet) 0.5 mg PO Q8H PRN PRN Reason: Anxiety Last Admin: 04/04/23 22:52 Dose: 0.5 mg Magnesium Hydroxide (Milk Of Magnesia 30 Ml Oral.Susp) 30 ml PO DAILY PRN PRN Reason: Constipation Multivitamins/Vitamin C (Multivitamin Tablet) 1 tab PO DAILY [facility] Last Admin: 04/05/23 08:13 Dose: 1 tab Nicotine Polacrilex (Nicotine Polacrilex 2 Mg Gum) 4 mg BUCCAL Q2H PRN PRN Reason: Nicotine Cravings Olanzapine (Olanzapine 2.5 Mg Tablet) 2.5 mg PO TID PRN PRN Reason: agitation Last Admin: 04/03/23 00:52 Dose: 2.5 mg Ondansetron HCl (Ondansetron Odt 4 Mg Tab.Rapdis) 4 mg TRANSLINGU Q6H PRN PRN Reason: Nausea And Vomiting Last Admin: 04/04/23 09:06 Dose: 4 mg Oxybutynin Chloride (Oxybutynin Chloride 5 Mg Tablet) 5 mg PO BID [facility] 234 BEDS AT THE [facility] Last Admin: 04/05/23 08:13 Dose: 5 mg Polyethylene Glycol (Polyethylene Glycol 3350 17 Gm Powd.Pack) 17 gm PO DAILY PRN PRN Reason: Constipation Prazosin HCl (Prazosin Hcl 1 Mg Capsule) 2 mg PO BEDTIME [facility]S [facility]CLUDE 234 BEDS AT THE [facility]; Protocol Last Admin: 04/04/23 20:00 Dose: 2 mg Risperidone (Risperidone 3 Mg Tablet) 3 mg PO BEDTIME [facility] Last Admin: 04/04/23 20:00 Dose: 3 mg Risperidone (Risperidone 3 Mg Tablet) 3 mg PO DAILY [facility]CLUDE 234 BEDS AT THE [facility] Last Admin: 04/05/23 08:13 Dose: 3 mg Senna (Sennosides 8.6 Mg Tablet) 17.2 mg PO BID PRN PRN Reason: Constipation Simethicone (Simethicone 80 Mg Tab.Chew) 80 mg PO Q8H PRN PRN Reason: Flatulence Allergies Allergies Allergy/AdvReac Type Severity Reaction Status Date / Time almotriptan Allergy Unknown Verified 03/30/23 11:28 aspirin Allergy Unknown Verified 03/30/23 11:28 diphenhydramine Allergy Unknown Verified 03/30/23 11:28 [From Benadryl] oxycodone Allergy Unknown Verified 03/30/23 11:28 pseudoephedrine Allergy Unknown Verified 03/30/23 11:28 mushroom AdvReac Abdominal Verified 03/30/23 11:28 Pain red dye Allergy Unknown Uncoded 03/29/23 17:52 sulpha drugs Allergy Unknown Uncoded 03/29/23 17:52 Assessment & Plan Assessment & Plan (1) Bipolar 1 disorder, mixed, mild: Status: Acute Code(s): F31.61 - Bipolar disorder, current episode mixed, mild Plan The patient is an elderly female with a prior history of bipolar disorder with several prior admissions into the hospital for psychosis and manic decompensation. The patient was initially brought to the emergency room of another hospital with signs and symptoms of gay and psychosis. Plan 1. Gather collateral information, we will call her daughter and find out what is her baseline. 2. Continue Risperdal 3 mg p.o. b.i.d. and other neuroleptics. I offered Invega Sustenna instead of Risperdal p.o. 3. Continue medical workout. 4. Reassessment with results. 5. Hospital consult due to increased blood pressure. 6. Depakote level and other lab work for tomorrow morning. 7. Prazosin 2 mg po qhs for night chua on 04/02. 8. Neurology consult. Reason for continued inpatient stay Substantial Risk for: inability to function, rapid decompensation and med/psych decompensation Time Spent With Patient Time: Total time managing care of this patient today _20___ minutes.
[2023-04-05 18:00] VITALS: BP 140/63; PULSE 89; RESP 18; TEMP 36.4; O2SAT 95
[2023-04-05] MEDS: Calcium Carbonate 750 MG TAB.CHEW PO ×2 (18:40→21:41)
[2023-04-05] MEDS: lamoTRIgine 100 MG TABLET PO (20:39)
[2023-04-05] MEDS: lamoTRIgine 25 MG TABLET PO (20:40)
[2023-04-05] MEDS: lisinopriL 10 MG TABLET PO (20:40)
[2023-04-05] MEDS: Prazosin HCL 1 MG CAPSULE 2 MG PO (20:41)
[2023-04-06] MEDS: LORazepam 0.5 MG TABLET PO (00:06)
[2023-04-06] MEDS: Famotidine 20 MG TABLET PO (06:01)
[2023-04-06 08:25] VITALS: BP 140/62; PULSE 100; RESP 18; TEMP 36.2; O2SAT 97
[2023-04-06] MEDS: oxyBUTYnin chloride 5 MG TABLET PO ×2 (09:36→20:42)
[2023-04-06] MEDS: levETIRAcetam 1,000 MG TABLET 1000 MG PO ×2 (09:36→20:41)
[2023-04-06] MEDS: Divalproex Sodium ER 250 MG TAB.ER.24H PO ×2 (09:36→20:39)
[2023-04-06] MEDS: Multivitamin TABLET 1 TAB PO (09:36)
[2023-04-06] MEDS: Ferrous Sulfate 324 MG TABLET.DR PO (09:37)
[2023-04-06] MEDS: risperiDONE 3 MG TABLET PO ×2 (09:37→20:43)
[2023-04-06] MEDS: amLODIPine Besylate 10 MG TABLET PO (09:37)
[2023-04-06] MEDS: lamoTRIgine 25 MG TABLET 150 MG PO (09:37)
--- NOTE | 2023-04-06 11:40 | HO.PSYCHPN ---
Subjective Subjective Date of Service: 04/06/23 Reason For Visit: gay Interim History: The nursing staff reported that patient has been compliant and pleasant. She is seen and reports she slept well. She has been eating well and is in a good mood. Denies medications side effects. She reports she is awaiting neurology consult and asked if this functional tester typewriters was the neurologist. She is on a one-to-one for safety. On interview the patient denies new symptoms. Neuro consult pending. Review of Systems Review of Systems Unable to obtain due to patient's mentation. Yes all other systems are reviewed and are negative Mental Status Exam Mental Status Exam Narrative: In today's visit she is alert, oriented and pleasant. Normal speech. Good eye contact. Affect is appropriate and varied. No signs of depression or hypomania. No signs of psychosis. Cognitively he is intact. Judgment is intact Patient Appearance: Well Grooomed and Appropriate Patient Orientation: Person and Situation Level of Consciousness: Awake and Appropriate Patient Behavior: Guarded and Passive Mood Description: Withdrawn Affect Description: Constricted Patient Cognition Impaired: Yes Ability to Follow Directions: Good Speech Pattern: Clear Diagnostics Vital Signs (24Hr): Vital Signs - 24 hr 04/05/23 18:00 04/06/23 08:25 Temperature 97.5 F 97.1 F Pulse Rate 89 100 Respiratory Rate 18 18 Blood Pressure 140/63 H 140/62 H Pulse Oximetry 95 97 Oxygen Delivery Method Room Air Room Air BMI result Body Mass Index 25.9 Labs 04/03/23 07:58 04/03/23 07:58 Imaging Radiology Impressions: ITS Impressions Hip/Pelvis X-Ray 04/04/23 09:59 IMPRESSION: * Subtle lucency involving the right femoral head only appreciated on this single view, unclear if this could potentially reflect a nutrient channel however a nondisplaced fracture would be difficult to exclude. Consider a CT hip for further evaluation. * Mild degenerative changes of the hips. Head CT 04/04/23 10:56 IMPRESSION: No acute intracranial hemorrhage or territorial infarction. Prominence of the lateral and third ventricles with a narrow callosal angle and an increased Smith index. Imaging findings may reflect normal pressure hydrocephalus and clinical correlation is recommended. Medications Medications Current Medications Acetaminophen (Acetaminophen 325 Mg Tablet) 650 mg PO Q6H PRN PRN Reason: Headache/Pain Mild Scale (1-3) Last Admin: 04/05/23 21:20 Dose: 650 mg Al Hydroxide/Mg Hydroxide (Magnesium Hydrox/Alum Hydrox 30 Ml Oral.Susp) 30 ml PO Q6H PRN PRN Reason: Indigestion Amlodipine Besylate (Amlodipine Besylate 10 Mg Tablet) 10 mg PO DAILY [facility] Last Admin: 04/06/23 09:37 Dose: 10 mg Bethanechol Chloride (Bethanechol Chloride 10 Mg Tablet) 10 mg PO TID [facility] Last Admin: 04/06/23 09:37 Dose: 10 mg Calcium Carbonate (Calcium Carbonate 750 Mg Tab.Chew) 750 mg PO Q3H PRN PRN Reason: Heartburn Last Admin: 04/05/23 21:41 Dose: 750 mg Divalproex Sodium (Divalproex Sodium Er 250 Mg Tab.Er.24h) 250 mg PO BID [facility] Last Admin: 04/06/23 09:36 Dose: 250 mg Famotidine (Famotidine 20 Mg Tablet) 20 mg PO DAILY@0630 [facility] Last Admin: 04/06/23 06:01 Dose: 20 mg Ferrous Sulfate (Ferrous Sulfate 324 Mg Tablet.Dr) 324 mg PO DAILY [facility] Last Admin: 04/06/23 09:37 Dose: 324 mg Hydralazine HCl (Hydralazine Hcl 10 Mg Tablet) 10 mg PO Q6H PRN; Protocol PRN Reason: Hypertension Last Admin: 04/02/23 06:47 Dose: 10 mg Lamotrigine (Lamotrigine 25 Mg Tablet) 150 mg PO DAILY [facility] Last Admin: 04/06/23 09:37 Dose: 150 mg Lamotrigine (Lamotrigine 100 Mg Tablet) 100 mg PO BEDTIME [facility] Last Admin: 04/05/23 20:39 Dose: 100 mg Lamotrigine (Lamotrigine 25 Mg Tablet) 25 mg PO BEDTIME [facility] Last Admin: 04/05/23 20:40 Dose: 25 mg Levetiracetam (Levetiracetam 1,000 Mg Tablet) 1,000 mg PO BID [facility] Last Admin: 04/06/23 09:36 Dose: 1,000 mg Lidocaine HCl (Lidocaine Hcl Viscous 2 % 15 Ml Solution) 15 ml MUCOUS MEM Q6H PRN PRN Reason: Pain Lisinopril (Lisinopril 10 Mg Tablet) 10 mg PO BEDTIME [facility]; Protocol Last Admin: 06/23/23 20:40 Dose: 10 mg Loperamide HCl (Loperamide Hcl 2 Mg Capsule) 2 mg PO Q6H PRN PRN Reason: Diarrhea Lorazepam (Lorazepam 0.5 Mg Tablet) 0.5 mg PO Q8H PRN PRN Reason: Anxiety Last Admin: 04/06/23 00:06 Dose: 0.5 mg Magnesium Hydroxide (Milk Of Magnesia 30 Ml Oral.Susp) 30 ml PO DAILY PRN PRN Reason: Constipation Multivitamins/Vitamin C (Multivitamin Tablet) 1 tab PO DAILY [facility] Last Admin: 04/06/23 09:36 Dose: 1 tab Nicotine Polacrilex (Nicotine Polacrilex 2 Mg Gum) 4 mg BUCCAL Q2H PRN PRN Reason: Nicotine Cravings Olanzapine (Olanzapine 2.5 Mg Tablet) 2.5 mg PO TID PRN PRN Reason: agitation Last Admin: 04/03/23 00:52 Dose: 2.5 mg Ondansetron HCl (Ondansetron Odt 4 Mg Tab.Rapdis) 4 mg TRANSLINGU Q6H PRN PRN Reason: Nausea And Vomiting Last Admin: 04/04/23 09:06 Dose: 4 mg Oxybutynin Chloride (Oxybutynin Chloride 5 Mg Tablet) 5 mg PO BID [facility] Last Admin: 04/06/23 09:36 Dose: 5 mg Polyethylene Glycol (Polyethylene Glycol 3350 17 Gm Powd.Pack) 17 gm PO DAILY PRN PRN Reason: Constipation Prazosin HCl (Prazosin Hcl 1 Mg Capsule) 2 mg PO BEDTIME [facility]; Protocol Last Admin: 04/05/23 20:41 Dose: 2 mg Risperidone (Risperidone 3 Mg Tablet) 3 mg PO BEDTIME [facility] Last Admin: 04/05/23 20:42 Dose: 3 mg Risperidone (Risperidone 3 Mg Tablet) 3 mg PO DAILY [facility] Last Admin: 04/06/23 09:37 Dose: 3 mg Senna (Sennosides 8.6 Mg Tablet) 17.2 mg PO BID PRN PRN Reason: Constipation Simethicone (Simethicone 80 Mg Tab.Chew) 80 mg PO Q8H PRN PRN Reason: Flatulence Allergies Allergies Allergy/AdvReac Type Severity Reaction Status Date / Time almotriptan Allergy Unknown Verified 03/30/23 11:28 aspirin Allergy Unknown Verified 03/30/23 11:28 diphenhydramine Allergy Unknown Verified 03/30/23 11:28 [From Benadryl] oxycodone Allergy Unknown Verified 03/30/23 11:28 pseudoephedrine Allergy Unknown Verified 03/30/23 11:28 mushroom AdvReac Abdominal Verified 03/30/23 11:28 Pain red dye Allergy Unknown Uncoded 03/29/23 17:52 sulpha drugs Allergy Unknown Uncoded 03/29/23 17:52 Assessment & Plan Assessment & Plan (1) Bipolar 1 disorder, mixed, mild: Status: Acute Code(s): F31.61 - Bipolar disorder, current episode mixed, mild Plan The patient is an elderly female with a prior history of bipolar disorder with several prior admissions into the hospital for psychosis and manic decompensation. The patient was initially brought to the emergency room of another hospital with signs and symptoms of gay and psychosis. Plan 1. Gather collateral information, we will call her daughter and find out what is her baseline. 2. Continue Risperdal 3 mg p.o. b.i.d. and other neuroleptics. I offered Invega Sustenna instead of Risperdal p.o. 3. Continue medical workout. 4. Reassessment with results. 5. Hospital consult due to increased blood pressure. 6. Depakote level and other lab work for tomorrow morning. 7. Prazosin 2 mg po qhs for night chua on 04/02. 8. Neurology consult. 04/06: Continue current treatment plan. Reason for continued inpatient stay Substantial Risk for: inability to function and rapid decompensation Time Spent With Patient Time: Total time managing care of this patient today ____ minutes.
[2023-04-06] MEDS: Calcium Carbonate 750 MG TAB.CHEW PO (16:27)
[2023-04-06 18:00] VITALS: BP 152/72; PULSE 72; RESP 18; TEMP 36.4; O2SAT 97
--- NOTE | 2023-04-06 19:08 | PM.EVENT ---
Event Note Date of Service: 04/07/23 Event Note: Pt is a 67-year-old female with a PMH significant for HTN, COPD, anemia, CKD 3, partial seizure disorder, schizoaffective disorder, bipolar disorder, depression who is admitted to [facility] for increasing agitated behavior. Patient with a recent fall out of bed, and was feeling ill on 04/04/2023 with 1 episode of vomiting. Psychiatry ordered for CT scan of head and hip x-ray. Nausea and vomiting resolved after breakfast. Patient was able to eat lunch without incident and was feeling ?good? by the afternoon. CT of head found no acute intracranial hemorrhage or territorial infarction but found prominence of the lateral and 3rd ventricles with a narrow colossal angle and increased evidence index which may reflect normal pressure hydrocephalus. Neurology consult has been placed for evaluation of this finding and potential for further workup. Hip and pelvis x-ray found a subtle lucency involving the right femoral head only appreciated on a single view, possibly a nutrient channel however a nondisplaced fracture cannot be excluded. Will get CT of right hip to rule out right femoral head fracture. CT of right hip showed no acute fracture or dislocation and no avascular necrosis. Thank you for allowing us to participate in the care of this patient. Signing off at this time. Please let us know if there are any acute complaints or questions. Time Spent With Patient Time: Total time managing care of this patient today ____ minutes.
[2023-04-06] MEDS: lamoTRIgine 100 MG TABLET PO (20:41)
[2023-04-06] MEDS: lisinopriL 10 MG TABLET PO (20:41)
[2023-04-06] MEDS: lamoTRIgine 25 MG TABLET PO (20:41)
[2023-04-06] MEDS: Prazosin HCL 1 MG CAPSULE 2 MG PO (20:42)
[2023-04-07] MEDS: Calcium Carbonate 750 MG TAB.CHEW PO ×2 (01:41→20:53)
[2023-04-07] MEDS: Acetaminophen 325 MG TABLET 650 MG PO ×2 (01:55→22:41)
[2023-04-07] MEDS: Ondansetron ODT 4 MG TAB.RAPDIS TRANSLINGU ×2 (02:04→22:47)
[2023-04-07] MEDS: LORazepam 0.5 MG TABLET PO ×2 (02:52→22:47)
[2023-04-07] MEDS: Famotidine 20 MG TABLET PO (07:07)
[2023-04-07 08:33] VITALS: BP 129/62; PULSE 98; RESP 18; TEMP 36; O2SAT 97
[2023-04-07] MEDS: Divalproex Sodium ER 250 MG TAB.ER.24H PO ×2 (08:59→20:54)
[2023-04-07] MEDS: amLODIPine Besylate 10 MG TABLET PO (08:59)
[2023-04-07] MEDS: Ferrous Sulfate 324 MG TABLET.DR PO (09:00)
[2023-04-07] MEDS: lamoTRIgine 25 MG TABLET 150 MG PO (09:00)
[2023-04-07] MEDS: oxyBUTYnin chloride 5 MG TABLET PO ×2 (09:00→20:55)
[2023-04-07] MEDS: levETIRAcetam 1,000 MG TABLET 1000 MG PO ×2 (09:00→20:54)
[2023-04-07] MEDS: risperiDONE 3 MG TABLET PO ×2 (09:00→20:55)
[2023-04-07] MEDS: Multivitamin TABLET 1 TAB PO (09:00)
[2023-04-07 18:00] VITALS: BP 147/79; PULSE 90; RESP 18; TEMP 36.8; O2SAT 95
--- NOTE | 2023-04-07 19:37 | P.PNPSI_ITS ---
Subjective Subjective Date of Service: 04/07/23 Reason For Visit: gay Interim History: The nursing staff reported that patient has been compliant and pleasant. She had hip XR and CT last night. Negative for fractures. She is seen and reports she slept well. She has been eating well and is in a good mood. Denies medications side effects. She reports she is awaiting neurology consult. She is on a one-to-one for safety. On interview the patient denies new symptoms. Neuro consult pending. Review of Systems Review of Systems Unable to obtain due to patient's mentation. Yes all other systems are reviewed and are negative Mental Status Exam Mental Status Exam Narrative: In today's visit she is alert, oriented and pleasant. Normal speech. Good eye contact. Affect is appropriate and varied. No signs of depression or hypomania. No signs of psychosis. Cognitively he is intact. Judgment is intact Patient Appearance: Well Grooomed and Appropriate Patient Orientation: Person and Situation Level of Consciousness: Awake and Appropriate Patient Behavior: Guarded and Passive Mood Description: Withdrawn Affect Description: Constricted Patient Cognition Impaired: Yes Ability to Follow Directions: Good Speech Pattern: Clear Diagnostics Vital Signs (24Hr): Vital Signs - 24 hr 04/07/23 08:33 Temperature 96.8 F Pulse Rate 98 Respiratory Rate 18 Blood Pressure 129/62 Pulse Oximetry 97 Oxygen Delivery Method Room Air BMI result Body Mass Index 25.9 Labs 04/03/23 07:58 04/03/23 07:58 Imaging Radiology Impressions: ITS Impressions Hip/Pelvis X-Ray 04/04/23 09:59 IMPRESSION: * Subtle lucency involving the right femoral head only appreciated on this single view, unclear if this could potentially reflect a nutrient channel however a nondisplaced fracture would be difficult to exclude. Consider a CT hip for further evaluation. * Mild degenerative changes of the hips. Head CT 04/04/23 10:56 IMPRESSION: No acute intracranial hemorrhage or territorial infarction. Prominence of the lateral and third ventricles with a narrow callosal angle and an increased Smith index. Imaging findings may reflect normal pressure hydrocephalus and clinical correlation is recommended. Hip CT 04/06/23 21:15 IMPRESSION: 1. No acute fracture or dislocation. No evidence of avascular necrosis. 2. Partially visualized and distended urinary bladder. Medications Medications Current Medications Acetaminophen (Acetaminophen 325 Mg Tablet) 650 mg PO Q6H PRN PRN Reason: Headache/Pain Mild Scale (1-3) Last Admin: 04/07/23 01:55 Dose: 650 mg Al Hydroxide/Mg Hydroxide (Magnesium Hydrox/Alum Hydrox 30 Ml Oral.Susp) 30 ml PO Q6H PRN PRN Reason: Indigestion Amlodipine Besylate (Amlodipine Besylate 10 Mg Tablet) 10 mg PO DAILY [facility] Last Admin: 04/07/23 08:59 Dose: 10 mg Bethanechol Chloride (Bethanechol Chloride 10 Mg Tablet) 10 mg PO TID [facility] Last Admin: 04/07/23 14:36 Dose: 10 mg Calcium Carbonate (Calcium Carbonate 750 Mg Tab.Chew) 750 mg PO Q3H PRN PRN Reason: Heartburn Last Admin: 04/07/23 01:41 Dose: 750 mg Divalproex Sodium (Divalproex Sodium Er 250 Mg Tab.Er.24h) 250 mg PO BID [facility] Last Admin: 04/07/23 08:59 Dose: 250 mg Famotidine (Famotidine 20 Mg Tablet) 20 mg PO DAILY@0630 [facility] Last Admin: 04/07/23 07:07 Dose: 20 mg Ferrous Sulfate (Ferrous Sulfate 324 Mg Tablet.Dr) 324 mg PO DAILY [facility] Last Admin: 04/07/23 09:00 Dose: 324 mg Hydralazine HCl (Hydralazine Hcl 10 Mg Tablet) 10 mg PO Q6H PRN; Protocol PRN Reason: Hypertension Last Admin: 04/02/23 06:47 Dose: 10 mg Lamotrigine (Lamotrigine 25 Mg Tablet) 150 mg PO DAILY [facility] Last Admin: 04/07/23 09:00 Dose: 150 mg Lamotrigine (Lamotrigine 100 Mg Tablet) 100 mg PO BEDTIME [facility] Last Admin: 04/06/23 20:41 Dose: 100 mg Lamotrigine (Lamotrigine 25 Mg Tablet) 25 mg PO BEDTIME [facility] Last Admin: 04/06/23 20:41 Dose: 25 mg Levetiracetam (Levetiracetam 1,000 Mg Tablet) 1,000 mg PO BID [facility] Last Admin: 04/07/23 09:00 Dose: 1,000 mg Lidocaine HCl (Lidocaine Hcl Viscous 2 % 15 Ml Solution) 15 ml MUCOUS MEM Q6H PRN PRN Reason: Pain Lisinopril (Lisinopril 10 Mg Tablet) 10 mg PO BEDTIME [facility]; Protocol Last Admin: 04/06/23 20:41 Dose: 10 mg Loperamide HCl (Loperamide Hcl 2 Mg Capsule) 2 mg PO Q6H PRN PRN Reason: Diarrhea Lorazepam (Lorazepam 0.5 Mg Tablet) 0.5 mg PO Q8H PRN PRN Reason: Anxiety Last Admin: 04/07/23 02:52 Dose: 0.5 mg Magnesium Hydroxide (Milk Of Magnesia 30 Ml Oral.Susp) 30 ml PO DAILY PRN PRN Reason: Constipation Multivitamins/Vitamin C (Multivitamin Tablet) 1 tab PO DAILY [facility] Last Admin: 04/07/23 09:00 Dose: 1 tab Nicotine Polacrilex (Nicotine Polacrilex 2 Mg Gum) 4 mg BUCCAL Q2H PRN PRN Reason: Nicotine Cravings Olanzapine (Olanzapine 2.5 Mg Tablet) 2.5 mg PO TID PRN PRN Reason: agitation Last Admin: 04/03/23 00:52 Dose: 2.5 mg Ondansetron HCl (Ondansetron Odt 4 Mg Tab.Rapdis) 4 mg TRANSLINGU Q6H PRN PRN Reason: Nausea And Vomiting Last Admin: 04/07/23 02:04 Dose: 4 mg Oxybutynin Chloride (Oxybutynin Chloride 5 Mg Tablet) 5 mg PO BID [facility] Last Admin: 04/07/23 09:00 Dose: 5 mg Polyethylene Glycol (Polyethylene Glycol 3350 17 Gm Powd.Pack) 17 gm PO DAILY PRN PRN Reason: Constipation Prazosin HCl (Prazosin Hcl 1 Mg Capsule) 2 mg PO BEDTIME [facility]; Protocol Last Admin: 04/06/23 20:42 Dose: 2 mg Risperidone (Risperidone 3 Mg Tablet) 3 mg PO BEDTIME [facility] Last Admin: 04/06/23 20:43 Dose: 3 mg Risperidone (Risperidone 3 Mg Tablet) 3 mg PO DAILY [facility] Last Admin: 04/07/23 09:00 Dose: 3 mg Senna (Sennosides 8.6 Mg Tablet) 17.2 mg PO BID PRN PRN Reason: Constipation Simethicone (Simethicone 80 Mg Tab.Chew) 80 mg PO Q8H PRN PRN Reason: Flatulence Allergies Allergies Allergy/AdvReac Type Severity Reaction Status Date / Time almotriptan Allergy Unknown Verified 03/30/23 11:28 aspirin Allergy Unknown Verified 03/30/23 11:28 diphenhydramine Allergy Unknown Verified 03/30/23 11:28 [From Benadryl] oxycodone Allergy Unknown Verified 03/30/23 11:28 pseudoephedrine Allergy Unknown Verified 03/30/23 11:28 mushroom AdvReac Abdominal Verified 03/30/23 11:28 Pain red dye Allergy Unknown Uncoded 03/29/23 17:52 sulpha drugs Allergy Unknown Uncoded 03/29/23 17:52 Assessment & Plan Assessment & Plan (1) Bipolar 1 disorder, mixed, mild: Status: Acute Code(s): F31.61 - Bipolar disorder, current episode mixed, mild Plan The patient is an elderly female with a prior history of bipolar disorder with several prior admissions into the hospital for psychosis and manic decompensation. The patient was initially brought to the emergency room of another hospital with signs and symptoms of gay and psychosis. Plan 1. Gather collateral information, we will call her daughter and find out what is her baseline. 2. Continue Risperdal 3 mg p.o. b.i.d. and other neuroleptics. I offered Invega Sustenna instead of Risperdal p.o. 3. Continue medical workout. 4. Reassessment with results. 5. Hospital consult due to increased blood pressure. 6. Depakote level and other lab work for tomorrow morning. 7. Prazosin 2 mg po qhs for night chua on 04/02. 8. Neurology consult. 04/06: Continue current treatment plan. 04/07:Continue current treatment plan. Reason for continued inpatient stay Substantial Risk for: inability to function and rapid decompensation Time Spent With Patient Time: Total time managing care of this patient today ____ minutes.
[2023-04-07] MEDS: lamoTRIgine 100 MG TABLET PO (20:54)
[2023-04-07] MEDS: Prazosin HCL 1 MG CAPSULE 2 MG PO (20:55)
[2023-04-07] MEDS: lamoTRIgine 25 MG TABLET PO (20:55)
[2023-04-07] MEDS: lisinopriL 10 MG TABLET PO (20:55)
[2023-04-08] MEDS: Famotidine 20 MG TABLET PO (06:21)
[2023-04-08 08:05] VITALS: BP 129/55; PULSE 89; RESP 18; TEMP 36.1; O2SAT 97
[2023-04-08] MEDS: Ondansetron ODT 4 MG TAB.RAPDIS TRANSLINGU ×2 (09:21→21:29)
--- NOTE | 2023-04-08 09:53 | P.PNPSI_ITS ---
Subjective Subjective Date of Service: 04/08/23 Reason For Visit: gay Subjective Notes: Conditional Voluntary Interim History: The nursing staff reported the patient has been pleasant and cooperative in a been between meals. Today I called Neurology to follow up regarding the consult and we place last Saturday. On interview, the patient denies new symptoms, she states that her mood is much better. Mental Status Exam Mental Status Exam Patient Appearance: Well Grooomed and Appropriate Patient Orientation: Person and Situation Level of Consciousness: Awake and Appropriate Patient Behavior: Guarded and Passive Mood Description: Withdrawn Affect Description: Constricted Patient Cognition Impaired: Yes Ability to Follow Directions: Good Speech Pattern: Clear Hallucinations: None Delusions: Not Present Thought Process: Distracted Thought Content: positive for Iselin and positive for Circumstantial Judgement: Fair Diagnostics Vital Signs (24Hr): Vital Signs - 24 hr 04/07/23 18:00 04/08/23 08:05 Temperature 98.2 F 97.0 F Pulse Rate 90 89 Respiratory Rate 18 18 Blood Pressure 147/79 H 129/55 L Pulse Oximetry 95 97 Oxygen Delivery Method Room Air Room Air BMI result Body Mass Index 25.9 Labs 04/03/23 07:58 04/03/23 07:58 Imaging Radiology Impressions: ITS Impressions Hip/Pelvis X-Ray 04/04/23 09:59 IMPRESSION: * Subtle lucency involving the right femoral head only appreciated on this single view, unclear if this could potentially reflect a nutrient channel however a nondisplaced fracture would be difficult to exclude. Consider a CT hip for further evaluation. * Mild degenerative changes of the hips. Head CT 04/04/23 10:56 IMPRESSION: No acute intracranial hemorrhage or territorial infarction. Prominence of the lateral and third ventricles with a narrow callosal angle and an increased Smith index. Imaging findings may reflect normal pressure hydrocephalus and clinical correlation is recommended. Hip CT 04/06/23 21:15 IMPRESSION: 1. No acute fracture or dislocation. No evidence of avascular necrosis. 2. Partially visualized and distended urinary bladder. Medications Medications Current Medications Acetaminophen (Acetaminophen 325 Mg Tablet) 650 mg PO Q6H PRN PRN Reason: Headache/Pain Mild Scale (1-3) Last Admin: 04/07/23 22:41 Dose: 650 mg Al Hydroxide/Mg Hydroxide (Magnesium Hydrox/Alum Hydrox 30 Ml Oral.Susp) 30 ml PO Q6H PRN PRN Reason: Indigestion Amlodipine Besylate (Amlodipine Besylate 10 Mg Tablet) 10 mg PO DAILY [facility] Last Admin: 04/07/23 08:59 Dose: 10 mg Bethanechol Chloride (Bethanechol Chloride 10 Mg Tablet) 10 mg PO TID [facility] Last Admin: 04/07/23 20:54 Dose: 10 mg Calcium Carbonate (Calcium Carbonate 750 Mg Tab.Chew) 750 mg PO Q3H PRN PRN Reason: Heartburn Last Admin: 04/07/23 20:53 Dose: 750 mg Divalproex Sodium (Divalproex Sodium Er 250 Mg Tab.Er.24h) 250 mg PO BID [facility] Last Admin: 04/07/23 20:54 Dose: 250 mg Famotidine (Famotidine 20 Mg Tablet) 20 mg PO DAILY@0630 [facility] Last Admin: 04/08/23 06:21 Dose: 20 mg Ferrous Sulfate (Ferrous Sulfate 324 Mg Tablet.Dr) 324 mg PO DAILY [facility] Last Admin: 04/07/23 09:00 Dose: 324 mg Hydralazine HCl (Hydralazine Hcl 10 Mg Tablet) 10 mg PO Q6H PRN; Protocol PRN Reason: Hypertension Last Admin: 04/02/23 06:47 Dose: 10 mg Lamotrigine (Lamotrigine 25 Mg Tablet) 150 mg PO DAILY [facility] Last Admin: 04/07/23 09:00 Dose: 150 mg Lamotrigine (Lamotrigine 100 Mg Tablet) 100 mg PO BEDTIME [facility] Last Admin: 04/07/23 20:54 Dose: 100 mg Lamotrigine (Lamotrigine 25 Mg Tablet) 25 mg PO BEDTIME [facility] Last Admin: 04/07/23 20:55 Dose: 25 mg Levetiracetam (Levetiracetam 1,000 Mg Tablet) 1,000 mg PO BID [facility] Last Admin: 04/07/23 20:54 Dose: 1,000 mg Lidocaine HCl (Lidocaine Hcl Viscous 2 % 15 Ml Solution) 15 ml MUCOUS MEM Q6H PRN PRN Reason: Pain Lisinopril (Lisinopril 10 Mg Tablet) 10 mg PO BEDTIME [facility]; Protocol Last Admin: 04/07/23 20:55 Dose: 10 mg Loperamide HCl (Loperamide Hcl 2 Mg Capsule) 2 mg PO Q6H PRN PRN Reason: Diarrhea Lorazepam (Lorazepam 0.5 Mg Tablet) 0.5 mg PO Q8H PRN PRN Reason: Anxiety Last Admin: 04/07/23 22:47 Dose: 0.5 mg Magnesium Hydroxide (Milk Of Magnesia 30 Ml Oral.Susp) 30 ml PO DAILY PRN PRN Reason: Constipation Multivitamins/Vitamin C (Multivitamin Tablet) 1 tab PO DAILY [facility] Last Admin: 04/07/23 09:00 Dose: 1 tab Nicotine Polacrilex (Nicotine Polacrilex 2 Mg Gum) 4 mg BUCCAL Q2H PRN PRN Reason: Nicotine Cravings Olanzapine (Olanzapine 2.5 Mg Tablet) 2.5 mg PO TID PRN PRN Reason: agitation Last Admin: 04/03/23 00:52 Dose: 2.5 mg Ondansetron HCl (Ondansetron Odt 4 Mg Tab.Rapdis) 4 mg TRANSLINGU Q6H PRN PRN Reason: Nausea And Vomiting Last Admin: 04/08/23 09:21 Dose: 4 mg Oxybutynin Chloride (Oxybutynin Chloride 5 Mg Tablet) 5 mg PO BID [facility] Last Admin: 04/07/23 20:55 Dose: 5 mg Polyethylene Glycol (Polyethylene Glycol 3350 17 Gm Powd.Pack) 17 gm PO DAILY PRN PRN Reason: Constipation Prazosin HCl (Prazosin Hcl 1 Mg Capsule) 2 mg PO BEDTIME [facility]; Protocol Last Admin: 04/07/23 20:55 Dose: 2 mg Risperidone (Risperidone 3 Mg Tablet) 3 mg PO BEDTIME [facility] Last Admin: 04/07/23 20:55 Dose: 3 mg Risperidone (Risperidone 3 Mg Tablet) 3 mg PO DAILY [facility] Last Admin: 04/07/23 09:00 Dose: 3 mg Senna (Sennosides 8.6 Mg Tablet) 17.2 mg PO BID PRN PRN Reason: Constipation Simethicone (Simethicone 80 Mg Tab.Chew) 80 mg PO Q8H PRN PRN Reason: Flatulence Allergies Allergies Allergy/AdvReac Type Severity Reaction Status Date / Time almotriptan Allergy Unknown Verified 03/30/23 11:28 aspirin Allergy Unknown Verified 03/30/23 11:28 diphenhydramine Allergy Unknown Verified 03/30/23 11:28 [From Benadryl] oxycodone Allergy Unknown Verified 03/30/23 11:28 pseudoephedrine Allergy Unknown Verified 03/30/23 11:28 mushroom AdvReac Abdominal Verified 03/30/23 11:28 Pain red dye Allergy Unknown Uncoded 03/29/23 17:52 sulpha drugs Allergy Unknown Uncoded 03/29/23 17:52 Assessment & Plan Assessment & Plan (1) Bipolar 1 disorder, mixed, mild: Status: Acute Code(s): F31.61 - Bipolar disorder, current episode mixed, mild Plan The patient is an elderly female with a prior history of bipolar disorder with several prior admissions into the hospital for psychosis and manic decompensation. The patient was initially brought to the emergency room of another hospital with signs and symptoms of gay and psychosis. Plan 1. Gather collateral information, we will call her daughter and find out what is her baseline. 2. Continue Risperdal 3 mg p.o. b.i.d. and other neuroleptics. I offered Invega Sustenna instead of Risperdal p.o. 3. Continue medical workout. 4. Reassessment with results. 5. Hospital consult due to increased blood pressure. 6. Depakote level and other lab work for tomorrow morning. 7. Prazosin 2 mg po qhs for night chua on 04/02. 8. Neurology consult. Reason for continued inpatient stay Substantial Risk for: inability to function, rapid decompensation and med/psych decompensation Time Spent With Patient Time: Total time managing care of this patient today __20__ minutes.
--- NOTE | 2023-04-08 10:05 | PM.NEUROCN ---
History of Present Illness Data of Consult Service Date: 04/08/23 Primary Care Provider: Unknown Physician HPI Reason for consult: Seizure disorder and difficulty walking 67 years old woman who carried diagnosis of bipolar disorder was admitted in psych floor at this time. I was asked to see her for possibility of Parkinson's disease causing difficulty walking with history of seizure disorder. She was unable to provide any meaningful history and previous records were not available to figure out the nature of seizure disorder Review of Systems Review of Systems: No recent convulsion or fall [facility] Social History Social History Household Members: Other Household Members Other:: Resides at [facility] Housing: Detention Do you presently have visiting nurse or other home services: No Patient Tobacco Use Status: Former Tobacco user Quit Date: 8 years quit Tobacco use type: Cigarette Cigarette Packs Per Day: 2.5 Cigarettes Per Day: 50.0 Years Smoked: 40 Smoked in Last 30 Days: No e-Cigarette/Vaping Use: Never Used Patient Interested in Nicotine Replacement: No Patient Given Instructions on How to Stop Smoking: No Use of substances other than those prescribed or required for medical reasons: No Currently Displaying Signs/Symptoms of Drug Intoxication Withdrawal: No Any prior treatment program specific to substance use: No Have you been hit, kicked, punched, or otherwise hurt by someone within the past year? If so, by whom?: No Do you feel safe in your current relationship?: No Current Relationship Is there a partner from a previous relationship who is making you feel unsafe now?: No Are you made to feel afraid or neglected: No Spiritual Healthcare Practices: no Adventism Healthcare Practices: no Cultural Healthcare Practices: no Advance Directives: No Advance Directives Information Provided: No Do you have thoughts of harming others: None Do you have a plan to hurt others: No Plan Recently lost weight without trying: No Eating poorly because of decreased appetite: No Nutrition Risks: No Nutritional Risk Patient : No : No Poor oral hygiene: No service: No Sexual orientation: Straight/Heterosexual Meds Allergies Allergy/AdvReac Type Severity Reaction Status Date / Time almotriptan Allergy Unknown Verified 03/30/23 11:28 aspirin Allergy Unknown Verified 03/30/23 11:28 diphenhydramine Allergy Unknown Verified 03/30/23 11:28 [From Benadryl] oxycodone Allergy Unknown Verified 03/30/23 11:28 pseudoephedrine Allergy Unknown Verified 03/30/23 11:28 mushroom AdvReac Abdominal Verified 03/30/23 11:28 Pain red dye Allergy Unknown Uncoded 03/29/23 17:52 sulpha drugs Allergy Unknown Uncoded 03/29/23 17:52 Active Medications: Current Medications Acetaminophen (Acetaminophen 325 Mg Tablet) 650 mg PO Q6H PRN PRN Reason: Headache/Pain Mild Scale (1-3) Last Admin: 04/07/23 22:41 Dose: 650 mg Al Hydroxide/Mg Hydroxide (Magnesium Hydrox/Alum Hydrox 30 Ml Oral.Susp) 30 ml PO Q6H PRN PRN Reason: Indigestion Amlodipine Besylate (Amlodipine Besylate 10 Mg Tablet) 10 mg PO DAILY [facility] Last Admin: 04/07/23 08:59 Dose: 10 mg Bethanechol Chloride (Bethanechol Chloride 10 Mg Tablet) 10 mg PO TID [facility] Last Admin: 04/07/23 20:54 Dose: 10 mg Calcium Carbonate (Calcium Carbonate 750 Mg Tab.Chew) 750 mg PO Q3H PRN PRN Reason: Heartburn Last Admin: 04/07/23 20:53 Dose: 750 mg Divalproex Sodium (Divalproex Sodium Er 250 Mg Tab.Er.24h) 250 mg PO BID [facility] Last Admin: 04/07/23 20:54 Dose: 250 mg Famotidine (Famotidine 20 Mg Tablet) 20 mg PO DAILY@0630 [facility] Last Admin: 04/08/23 06:21 Dose: 20 mg Ferrous Sulfate (Ferrous Sulfate 324 Mg Tablet.Dr) 324 mg PO DAILY [facility] Last Admin: 04/07/23 09:00 Dose: 324 mg Hydralazine HCl (Hydralazine Hcl 10 Mg Tablet) 10 mg PO Q6H PRN; Protocol PRN Reason: Hypertension Last Admin: 04/02/23 06:47 Dose: 10 mg Lamotrigine (Lamotrigine 25 Mg Tablet) 150 mg PO DAILY [facility] Last Admin: 04/07/23 09:00 Dose: 150 mg Lamotrigine (Lamotrigine 100 Mg Tablet) 100 mg PO BEDTIME [facility] Last Admin: 04/07/23 20:54 Dose: 100 mg Lamotrigine (Lamotrigine 25 Mg Tablet) 25 mg PO BEDTIME [facility] Last Admin: 04/07/23 20:55 Dose: 25 mg Levetiracetam (Levetiracetam 1,000 Mg Tablet) 1,000 mg PO BID [facility] Last Admin: 04/07/23 20:54 Dose: 1,000 mg Lidocaine HCl (Lidocaine Hcl Viscous 2 % 15 Ml Solution) 15 ml MUCOUS MEM Q6H PRN PRN Reason: Pain Lisinopril (Lisinopril 10 Mg Tablet) 10 mg PO BEDTIME [facility]; Protocol Last Admin: 04/07/23 20:55 Dose: 10 mg Loperamide HCl (Loperamide Hcl 2 Mg Capsule) 2 mg PO Q6H PRN PRN Reason: Diarrhea Lorazepam (Lorazepam 0.5 Mg Tablet) 0.5 mg PO Q8H PRN PRN Reason: Anxiety Last Admin: 04/07/23 22:47 Dose: 0.5 mg Magnesium Hydroxide (Milk Of Magnesia 30 Ml Oral.Susp) 30 ml PO DAILY PRN PRN Reason: Constipation Multivitamins/Vitamin C (Multivitamin Tablet) 1 tab PO DAILY [facility] Last Admin: 04/07/23 09:00 Dose: 1 tab Nicotine Polacrilex (Nicotine Polacrilex 2 Mg Gum) 4 mg BUCCAL Q2H PRN PRN Reason: Nicotine Cravings Olanzapine (Olanzapine 2.5 Mg Tablet) 2.5 mg PO TID PRN PRN Reason: agitation Last Admin: 04/03/23 00:52 Dose: 2.5 mg Ondansetron HCl (Ondansetron Odt 4 Mg Tab.Rapdis) 4 mg TRANSLINGU Q6H PRN PRN Reason: Nausea And Vomiting Last Admin: 04/08/23 09:21 Dose: 4 mg Oxybutynin Chloride (Oxybutynin Chloride 5 Mg Tablet) 5 mg PO BID [facility] Last Admin: 04/07/23 20:55 Dose: 5 mg Polyethylene Glycol (Polyethylene Glycol 3350 17 Gm Powd.Pack) 17 gm PO DAILY PRN PRN Reason: Constipation Prazosin HCl (Prazosin Hcl 1 Mg Capsule) 2 mg PO BEDTIME [facility]; Protocol Last Admin: 04/07/23 20:55 Dose: 2 mg Risperidone (Risperidone 3 Mg Tablet) 3 mg PO BEDTIME [facility] Last Admin: 04/07/23 20:55 Dose: 3 mg Risperidone (Risperidone 3 Mg Tablet) 3 mg PO DAILY [facility] Last Admin: 04/07/23 09:00 Dose: 3 mg Senna (Sennosides 8.6 Mg Tablet) 17.2 mg PO BID PRN PRN Reason: Constipation Simethicone (Simethicone 80 Mg Tab.Chew) 80 mg PO Q8H PRN PRN Reason: Flatulence Home Medications Medication Instructions Recorded Confirmed Last Taken Type Lidocaine Viscous 15 ml buccal Q6-8H PRN Pain 03/30/23 03/30/23 Unknown History Maalox Plus 30 ml PO Q6-8H PRN Indigestion 03/30/23 03/30/23 Unknown History Multi Minerals 1 tab PO DAILY 03/30/23 03/30/23 Unknown History Risperdal 3 mg DAILY 03/30/23 03/30/23 Unknown History Tums 500 500 mg PO PRN Heartburn 03/30/23 Unknown History Vitamin 03/30/23 Unknown History acetaminophen 2 tab PO Q4-5H PRN Fever Or Pain 03/30/23 03/30/23 Unknown History amlodipine 5 mg PO DAILY 03/30/23 03/30/23 Unknown History bethanechol chloride 10 mg TID 03/30/23 03/30/23 Unknown History calcium carbonate 500 mg PO Q3-6H PRN Heartburn 03/30/23 03/30/23 Unknown History famotidine 20 mg PO DAILY@0630 03/30/23 03/30/23 Unknown History ferrous sulfate 325 mg PO DAILY 03/30/23 03/30/23 Unknown History hydralazine 10 mg tablet 10 mg PO Q6-8H PRN Hypertension 03/30/23 03/30/23 Unknown History lamotrigine 100 mg tablet 100 mg PO QPM 03/30/23 03/30/23 Unknown History (Lamictal) lamotrigine 150 mg tablet 150 mg PO DAILY 03/30/23 03/30/23 Unknown History (Lamictal) lamotrigine 25 mg tablet (Lamictal) 25 mg PO QPM 03/30/23 03/30/23 Unknown History levetiracetam 1,000 mg tablet 1,000 mg PO BID 03/30/23 03/30/23 Unknown History (Keppra) loperamide 2 mg PO Q6-8H PRN Diarrhea 03/30/23 03/30/23 Unknown History melatonin 12 mg PO QPM 03/30/23 03/30/23 Unknown History mirtazapine 7.5 mg PO QPM 03/30/23 03/30/23 Unknown History ondansetron 4 mg PO Q6-8H PRN Nausea And 03/30/23 03/30/23 Unknown History Vomiting oxybutynin chloride 5 mg PO BID 03/30/23 03/30/23 Unknown History polyethylene glycol 3350 17 g PO DAILY PRN Constipation 03/30/23 03/30/23 Unknown History quetiapine 50 mg tablet (Seroquel) 50 mg PO QPM 03/30/23 03/30/23 Unknown History senna 2 tab PO BID PRN Constipation 03/30/23 03/30/23 Unknown History simethicone 80 mg PO Q8-10H PRN Flatulence 03/30/23 03/30/23 Unknown History Physical Exam Vital Signs: Vital Signs: Last Vital Signs Temp 97.0 F 04/08/23 08:05 Pulse 89 04/08/23 08:05 Resp 18 04/08/23 08:05 BP 129/55 L 04/08/23 08:05 Pulse Ox 97 04/08/23 08:05 O2 Del Method Room Air 04/08/23 08:05 BMI result Body Mass Index 25.9 Neuro: Other: She is alert and awake complaining of being dizzy. She is following simple commands. Face is symmetrical. Facial expression blinking were diminished. Moderate cogwheeling rigidity is noted in upper extremities. Mild postural tremor is noted. She sitting in a wheelchair and could not get up even with my help. Speech was okay. Gaze was full per Results Labs 04/03/23 07:58 04/03/23 07:58 Assessment and Plan (1) Parkinsonism: Status: Acute 67 years old woman with diagnosis of bipolar disorder with exposure to neuroleptics has moderate parkinsonism resulting and rigidity unsteadiness and difficulty walking. Previous records were not available and it was not clear if she was exposed to dopaminergic drugs. In any case, now that she was admitted hospital, my suggestion is to try carbidopa levodopa 25/100 3 times a day, at 07:00 11:00 and 15:00 and see if she would respond to this treatment. As far as seizure disorder is concerned, previous medical records would be helpful. At this time she was not having any seizure-like episode in further investigations in that direction a not recommended. Time Spent With Patient Time: Total time managing care of this patient today ____ minutes. Procedures Date of Service Date of Service: 04/08/23
[2023-04-08] MEDS: levETIRAcetam 1,000 MG TABLET 1000 MG PO ×2 (11:13→21:32)
[2023-04-08] MEDS: Multivitamin TABLET 1 TAB PO (11:13)
[2023-04-08] MEDS: lamoTRIgine 100 MG, lamoTRIgine 50 MG 150 MG PO (11:14)
[2023-04-08] MEDS: amLODIPine Besylate 10 MG TABLET PO (11:15)
[2023-04-08] MEDS: oxyBUTYnin chloride 5 MG TABLET PO ×2 (11:15→21:33)
[2023-04-08] MEDS: Divalproex Sodium ER 250 MG TAB.ER.24H PO ×2 (11:15→21:34)
[2023-04-08] MEDS: risperiDONE 3 MG TABLET PO ×2 (11:15→21:33)
[2023-04-08] MEDS: Ferrous Sulfate 324 MG TABLET.DR PO (11:15)
[2023-04-08] MEDS: Acetaminophen 325 MG TABLET 650 MG PO ×2 (13:57→21:31)
[2023-04-08] MEDS: Calcium Carbonate 750 MG TAB.CHEW PO (17:44)
[2023-04-08 18:00] VITALS: BP 115/55; PULSE 80; RESP 18; TEMP 36.4; O2SAT 94
[2023-04-08] MEDS: lamoTRIgine 25 MG TABLET PO (21:32)
[2023-04-08] MEDS: Prazosin HCL 1 MG CAPSULE 2 MG PO (21:32)
[2023-04-08] MEDS: Magnesium Hydrox/Alum Hydrox 30 ML ORAL.SUSP PO (21:32)
[2023-04-08] MEDS: lamoTRIgine 100 MG TABLET PO (21:33)
[2023-04-08] MEDS: polyethylene glycoL 3350 17 GM POWD.PACK PO (21:34)
[2023-04-08] MEDS: lisinopriL 10 MG TABLET PO (21:34)
[2023-04-09] MEDS: Famotidine 20 MG TABLET PO (06:27)
[2023-04-09] MEDS: Acetaminophen 325 MG TABLET 650 MG PO (06:31)
[2023-04-09 08:03] VITALS: BP 155/55; PULSE 71; RESP 18; TEMP 36.3; O2SAT 95
[2023-04-09] MEDS: lamoTRIgine 100 MG, lamoTRIgine 50 MG 150 MG PO (08:12)
[2023-04-09] MEDS: Divalproex Sodium ER 250 MG TAB.ER.24H PO ×2 (08:12→21:21)
[2023-04-09] MEDS: Multivitamin TABLET 1 TAB PO (08:12)
[2023-04-09] MEDS: Ferrous Sulfate 324 MG TABLET.DR PO (08:12)
[2023-04-09] MEDS: oxyBUTYnin chloride 5 MG TABLET PO ×2 (08:12→21:23)
[2023-04-09] MEDS: risperiDONE 3 MG TABLET PO ×2 (08:13→21:24)
[2023-04-09] MEDS: levETIRAcetam 1,000 MG TABLET 1000 MG PO ×2 (08:13→21:22)
[2023-04-09] MEDS: amLODIPine Besylate 10 MG TABLET PO (08:13)
[2023-04-09] MEDS: Ondansetron ODT 4 MG TAB.RAPDIS TRANSLINGU ×3 (08:17→16:46)
[2023-04-09] MEDS: polyethylene glycoL 3350 17 GM POWD.PACK PO (08:25)
[2023-04-09] MEDS: Magnesium Hydrox/Alum Hydrox 30 ML ORAL.SUSP PO (08:28)
[2023-04-09] MEDS: Carbidopa/Levodopa 25/100 TABLET 1 TAB PO (10:44)
[2023-04-09] MEDS: Ibuprofen 400 MG TABLET PO (10:44)
--- NOTE | 2023-04-09 11:07 | HO.PSYCHPN ---
Subjective Subjective Date of Service: 04/09/23 Reason For Visit: gay Subjective Notes: Conditional Voluntary Interim History: The nursing staff reported the patient slept well. She was seen yesterday by Neurology and this suggested to at Sinemet. The psychotherapist social worker reported that most likely that discharge would be possible this week. On interview the patient denies new symptoms she feels better. I explained her that I started on a low dose of Sinemet for involuntary movements as per Neurology suggesting. Mental Status Exam Mental Status Exam Patient Appearance: Appropriate Patient Orientation: Person and Situation Level of Consciousness: Awake and Appropriate Patient Behavior: Guarded Mood Description: Withdrawn Affect Description: Constricted Patient Cognition Impaired: Yes Ability to Follow Directions: Good Speech Pattern: Clear Hallucinations: None Delusions: Paranoid Ideation Thought Process: Distracted Thought Content: positive for Mullan and positive for Circumstantial Judgement: Fair Diagnostics Vital Signs (24Hr): Vital Signs - 24 hr 04/08/23 18:00 04/09/23 08:03 Temperature 97.5 F 97.3 F Pulse Rate 80 71 Respiratory Rate 18 18 Blood Pressure 115/55 L 155/55 H Pulse Oximetry 94 95 Oxygen Delivery Method Room Air Room Air BMI result Body Mass Index 25.9 Labs 04/03/23 07:58 04/03/23 07:58 Imaging Radiology Impressions: ITS Impressions Hip/Pelvis X-Ray 04/04/23 09:59 IMPRESSION: * Subtle lucency involving the right femoral head only appreciated on this single view, unclear if this could potentially reflect a nutrient channel however a nondisplaced fracture would be difficult to exclude. Consider a CT hip for further evaluation. * Mild degenerative changes of the hips. Head CT 04/04/23 10:56 IMPRESSION: No acute intracranial hemorrhage or territorial infarction. Prominence of the lateral and third ventricles with a narrow callosal angle and an increased Smith index. Imaging findings may reflect normal pressure hydrocephalus and clinical correlation is recommended. Hip CT 04/06/23 21:15 IMPRESSION: 1. No acute fracture or dislocation. No evidence of avascular necrosis. 2. Partially visualized and distended urinary bladder. Medications Medications Current Medications Acetaminophen (Acetaminophen 325 Mg Tablet) 650 mg PO Q6H PRN PRN Reason: Headache/Pain Mild Scale (1-3) Last Admin: 04/09/23 06:31 Dose: 650 mg Al Hydroxide/Mg Hydroxide (Magnesium Hydrox/Alum Hydrox 30 Ml Oral.Susp) 30 ml PO Q6H PRN PRN Reason: Indigestion Last Admin: 04/09/23 08:28 Dose: 30 ml Amlodipine Besylate (Amlodipine Besylate 10 Mg Tablet) 10 mg PO DAILY [facility] Last Admin: 04/09/23 08:13 Dose: 10 mg Bethanechol Chloride (Bethanechol Chloride 10 Mg Tablet) 10 mg PO TID [facility] Last Admin: 04/09/23 08:12 Dose: 10 mg Calcium Carbonate (Calcium Carbonate 750 Mg Tab.Chew) 750 mg PO Q3H PRN PRN Reason: Heartburn Last Admin: 04/08/23 17:44 Dose: 750 mg Carbidopa/Levodopa (Carbidopa/Levodopa 25/100 Tablet) 1 tab PO BID [facility] Last Admin: 04/09/23 10:44 Dose: 1 tab Divalproex Sodium (Divalproex Sodium Er 250 Mg Tab.Er.24h) 250 mg PO BID [facility] Last Admin: 04/09/23 08:12 Dose: 250 mg Famotidine (Famotidine 20 Mg Tablet) 20 mg PO DAILY@0630 [facility] Last Admin: 04/09/23 06:27 Dose: 20 mg Ferrous Sulfate (Ferrous Sulfate 324 Mg Tablet.Dr) 324 mg PO DAILY [facility] Last Admin: 04/09/23 08:12 Dose: 324 mg Hydralazine HCl (Hydralazine Hcl 10 Mg Tablet) 10 mg PO Q6H PRN; Protocol PRN Reason: Hypertension Last Admin: 04/02/23 06:47 Dose: 10 mg Lamotrigine (Lamotrigine 100 Mg Tablet) 100 mg PO BEDTIME [facility] Last Admin: 04/08/23 21:33 Dose: 100 mg Lamotrigine (Lamotrigine 25 Mg Tablet) 25 mg PO BEDTIME [facility] Last Admin: 04/08/23 21:32 Dose: 25 mg Lamotrigine 100 mg/ (Lamotrigine 50 mg) 150 mg PO DAILY [facility] Last Admin: 04/09/23 08:12 Dose: 150 mg Levetiracetam (Levetiracetam 1,000 Mg Tablet) 1,000 mg PO BID [facility] Last Admin: 04/09/23 08:13 Dose: 1,000 mg Lidocaine HCl (Lidocaine Hcl Viscous 2 % 15 Ml Solution) 15 ml MUCOUS MEM Q6H PRN PRN Reason: Pain Lisinopril (Lisinopril 10 Mg Tablet) 10 mg PO BEDTIME [facility]; Protocol Last Admin: 04/08/23 21:34 Dose: 10 mg Loperamide HCl (Loperamide Hcl 2 Mg Capsule) 2 mg PO Q6H PRN PRN Reason: Diarrhea Lorazepam (Lorazepam 0.5 Mg Tablet) 0.5 mg PO Q8H PRN PRN Reason: Anxiety Last Admin: 04/07/23 22:47 Dose: 0.5 mg Magnesium Hydroxide (Milk Of Magnesia 30 Ml Oral.Susp) 30 ml PO DAILY PRN PRN Reason: Constipation Multivitamins/Vitamin C (Multivitamin Tablet) 1 tab PO DAILY [facility] Last Admin: 04/09/23 08:12 Dose: 1 tab Nicotine Polacrilex (Nicotine Polacrilex 2 Mg Gum) 4 mg BUCCAL Q2H PRN PRN Reason: Nicotine Cravings Olanzapine (Olanzapine 2.5 Mg Tablet) 2.5 mg PO TID PRN PRN Reason: agitation Last Admin: 04/03/23 00:52 Dose: 2.5 mg Ondansetron HCl (Ondansetron Odt 4 Mg Tab.Rapdis) 4 mg TRANSLINGU Q6H PRN PRN Reason: Nausea And Vomiting Last Admin: 04/09/23 08:17 Dose: 4 mg Oxybutynin Chloride (Oxybutynin Chloride 5 Mg Tablet) 5 mg PO BID [facility] Last Admin: 04/09/23 08:12 Dose: 5 mg Polyethylene Glycol (Polyethylene Glycol 3350 17 Gm Powd.Pack) 17 gm PO DAILY PRN PRN Reason: Constipation Last Admin: 04/09/23 08:25 Dose: 17 gm Prazosin HCl (Prazosin Hcl 1 Mg Capsule) 2 mg PO BEDTIME [facility]; Protocol Last Admin: 04/08/23 21:32 Dose: 2 mg Risperidone (Risperidone 3 Mg Tablet) 3 mg PO BEDTIME [facility] Last Admin: 04/08/23 21:33 Dose: 3 mg Risperidone (Risperidone 3 Mg Tablet) 3 mg PO DAILY [facility] Last Admin: 04/09/23 08:13 Dose: 3 mg Senna (Sennosides 8.6 Mg Tablet) 17.2 mg PO BID PRN PRN Reason: Constipation Simethicone (Simethicone 80 Mg Tab.Chew) 80 mg PO Q8H PRN PRN Reason: Flatulence Allergies Allergies Allergy/AdvReac Type Severity Reaction Status Date / Time almotriptan Allergy Unknown Verified 03/30/23 11:28 aspirin Allergy Unknown Verified 03/30/23 11:28 diphenhydramine Allergy Unknown Verified 03/30/23 11:28 [From Benadryl] oxycodone Allergy Unknown Verified 03/30/23 11:28 pseudoephedrine Allergy Unknown Verified 03/30/23 11:28 mushroom AdvReac Abdominal Verified 03/30/23 11:28 Pain red dye Allergy Unknown Uncoded 03/29/23 17:52 sulpha drugs Allergy Unknown Uncoded 03/29/23 17:52 Assessment & Plan Assessment & Plan (1) Bipolar 1 disorder, mixed, mild: Status: Acute Code(s): F31.61 - Bipolar disorder, current episode mixed, mild Plan The patient is an elderly female with a prior history of bipolar disorder with several prior admissions into the hospital for psychosis and manic decompensation. The patient was initially brought to the emergency room of another hospital with signs and symptoms of gay and psychosis. Plan 1. Gather collateral information, we will call her daughter and find out what is her baseline. 2. Continue Risperdal 3 mg p.o. b.i.d. and other neuroleptics. I offered Invega Sustenna instead of Risperdal p.o. 3. Continue medical workout. 4. Reassessment with results. 5. Hospital consult due to increased blood pressure. 6. Depakote level and other lab work for tomorrow morning. 7. Prazosin 2 mg po qhs for night chua on 04/02. 8. Neurology consult. Suggested Sinemet Reason for continued inpatient stay Substantial Risk for: inability to function, rapid decompensation and med/psych decompensation Time Spent With Patient Time: Total time managing care of this patient today __20__ minutes.
[2023-04-09 18:00] VITALS: BP 117/58; PULSE 77; RESP 18; TEMP 36.1; O2SAT 92
[2023-04-09] MEDS: lamoTRIgine 100 MG TABLET PO (21:22)
[2023-04-09] MEDS: lamoTRIgine 25 MG TABLET PO (21:22)
[2023-04-09] MEDS: lisinopriL 10 MG TABLET PO (21:22)
[2023-04-09] MEDS: Prazosin HCL 1 MG CAPSULE 2 MG PO (21:23)
[2023-04-10] MEDS: Famotidine 20 MG TABLET PO (05:43)
[2023-04-10] MEDS: Acetaminophen 325 MG TABLET 650 MG PO (05:44)
[2023-04-10] MEDS: Ondansetron ODT 4 MG TAB.RAPDIS TRANSLINGU ×3 (05:44→16:26)
[2023-04-10 08:54] VITALS: BP 119/60; PULSE 83; RESP 18; TEMP 36.3; O2SAT 93
[2023-04-10] MEDS: oxyBUTYnin chloride 5 MG TABLET PO (09:00)
[2023-04-10] MEDS: Multivitamin TABLET 1 TAB PO (09:00)
[2023-04-10] MEDS: levETIRAcetam 1,000 MG TABLET 1000 MG PO (09:01)
[2023-04-10] MEDS: Ferrous Sulfate 324 MG TABLET.DR PO (09:01)
[2023-04-10] MEDS: amLODIPine Besylate 10 MG TABLET PO (09:02)
[2023-04-10] MEDS: Carbidopa/Levodopa 25/100 TABLET 1 TAB PO (09:02)
[2023-04-10] MEDS: Divalproex Sodium ER 250 MG TAB.ER.24H PO (09:02)
[2023-04-10] MEDS: risperiDONE 3 MG TABLET PO (09:03)
[2023-04-10] MEDS: lamoTRIgine 100 MG, lamoTRIgine 50 MG 150 MG PO (09:03)
[2023-04-10] MEDS: Omeprazole 20 MG CAPSULE.DR PO (09:05)
[2023-04-10] MEDS: polyethylene glycoL 3350 17 GM POWD.PACK PO (09:30)
--- NOTE | 2023-04-10 11:28 | HO.PSYCHPN ---
Subjective Subjective Date of Service: 04/10/23 Reason For Visit: gay Subjective Notes: Conditional Voluntary Interim History: The nursing staff reported the patient has been pleasant and cooperative medication compliant 100%. Yesterday she was nauseous and we needed to give her so from twice. It seems that famotidine is not helping her and she agreed to change it to omeprazole. On interview, we decided to continue using Sinemet twice a day. So far, her mental status has improved there is no evidence of gay or psychosis at this moment. Her only complaint is nightmares that has improved very little with prazosin. We discussed the possibility of early discharge this week. Mental Status Exam Mental Status Exam Patient Appearance: Well Grooomed and Appropriate Patient Orientation: Person and Situation Level of Consciousness: Awake and Appropriate Patient Behavior: Guarded and Passive Mood Description: Withdrawn Affect Description: Constricted Ability to Follow Directions: Good Speech Pattern: Clear Hallucinations: None Delusions: Not Present Thought Process: Distracted Thought Content: positive for [place] and positive for Goal Oriented Judgement: Fair Diagnostics Vital Signs (24Hr): Vital Signs - 24 hr 04/09/23 18:00 04/10/23 08:54 Temperature 97 F 97.3 F Pulse Rate 77 83 Respiratory Rate 18 18 Blood Pressure 117/58 L 119/60 Pulse Oximetry 92 93 Oxygen Delivery Method Room Air Room Air BMI result Body Mass Index 25.9 Labs 04/03/23 07:58 04/03/23 07:58 Imaging Radiology Impressions: ITS Impressions Hip/Pelvis X-Ray 04/04/23 09:59 IMPRESSION: * Subtle lucency involving the right femoral head only appreciated on this single view, unclear if this could potentially reflect a nutrient channel however a nondisplaced fracture would be difficult to exclude. Consider a CT hip for further evaluation. * Mild degenerative changes of the hips. Head CT 04/04/23 10:56 IMPRESSION: No acute intracranial hemorrhage or territorial infarction. Prominence of the lateral and third ventricles with a narrow callosal angle and an increased Smith index. Imaging findings may reflect normal pressure hydrocephalus and clinical correlation is recommended. Hip CT 04/06/23 21:15 IMPRESSION: 1. No acute fracture or dislocation. No evidence of avascular necrosis. 2. Partially visualized and distended urinary bladder. Medications Medications Current Medications Acetaminophen (Acetaminophen 325 Mg Tablet) 650 mg PO Q6H PRN PRN Reason: Headache/Pain Mild Scale (1-3) Last Admin: 04/10/23 05:44 Dose: 650 mg Al Hydroxide/Mg Hydroxide (Magnesium Hydrox/Alum Hydrox 30 Ml Oral.Susp) 30 ml PO Q6H PRN PRN Reason: Indigestion Last Admin: 04/09/23 08:28 Dose: 30 ml Amlodipine Besylate (Amlodipine Besylate 10 Mg Tablet) 10 mg PO DAILY [facility] Last Admin: 04/10/23 09:02 Dose: 10 mg Bethanechol Chloride (Bethanechol Chloride 10 Mg Tablet) 10 mg PO TID [facility] Last Admin: 04/10/23 09:01 Dose: 10 mg Calcium Carbonate (Calcium Carbonate 750 Mg Tab.Chew) 750 mg PO Q3H PRN PRN Reason: Heartburn Last Admin: 04/08/23 17:44 Dose: 750 mg Carbidopa/Levodopa (Carbidopa/Levodopa 25/100 Tablet) 1 tab PO BID [facility] Last Admin: 04/10/23 09:02 Dose: 1 tab Divalproex Sodium (Divalproex Sodium Er 250 Mg Tab.Er.24h) 250 mg PO BID [facility] Last Admin: 04/10/23 09:02 Dose: 250 mg Ferrous Sulfate (Ferrous Sulfate 324 Mg Tablet.Dr) 324 mg PO DAILY [facility] Last Admin: 04/10/23 09:01 Dose: 324 mg Hydralazine HCl (Hydralazine Hcl 10 Mg Tablet) 10 mg PO Q6H PRN; Protocol PRN Reason: Hypertension Last Admin: 04/02/23 06:47 Dose: 10 mg Lamotrigine (Lamotrigine 100 Mg Tablet) 100 mg PO BEDTIME [facility] Last Admin: 04/09/23 21:22 Dose: 100 mg Lamotrigine (Lamotrigine 25 Mg Tablet) 25 mg PO BEDTIME [facility] Last Admin: 04/09/23 21:22 Dose: 25 mg Lamotrigine 100 mg/ (Lamotrigine 50 mg) 150 mg PO DAILY [facility] Last Admin: 04/10/23 09:03 Dose: 150 mg Levetiracetam (Levetiracetam 1,000 Mg Tablet) 1,000 mg PO BID [facility] Last Admin: 04/10/23 09:01 Dose: 1,000 mg Lidocaine HCl (Lidocaine Hcl Viscous 2 % 15 Ml Solution) 15 ml MUCOUS MEM Q6H PRN PRN Reason: Pain Lisinopril (Lisinopril 10 Mg Tablet) 10 mg PO BEDTIME MELONY; Protocol Last Admin: 04/09/23 21:22 Dose: 10 mg Loperamide HCl (Loperamide Hcl 2 Mg Capsule) 2 mg PO Q6H PRN PRN Reason: Diarrhea Lorazepam (Lorazepam 0.5 Mg Tablet) 0.5 mg PO Q8H PRN PRN Reason: Anxiety Last Admin: 04/07/23 22:47 Dose: 0.5 mg Magnesium Hydroxide (Milk Of Magnesia 30 Ml Oral.Susp) 30 ml PO DAILY PRN PRN Reason: Constipation Multivitamins/Vitamin C (Multivitamin Tablet) 1 tab PO DAILY [facility] Last Admin: 04/10/23 09:00 Dose: 1 tab Nicotine Polacrilex (Nicotine Polacrilex 2 Mg Gum) 4 mg BUCCAL Q2H PRN PRN Reason: Nicotine Cravings Olanzapine (Olanzapine 2.5 Mg Tablet) 2.5 mg PO TID PRN PRN Reason: agitation Last Admin: 04/03/23 00:52 Dose: 2.5 mg Omeprazole (Omeprazole 20 Mg Capsule.Dr) 20 mg PO DAILY@0630 [facility] Ondansetron HCl (Ondansetron Odt 4 Mg Tab.Rapdis) 4 mg TRANSLINGU Q6H PRN PRN Reason: Nausea And Vomiting Last Admin: 04/10/23 05:44 Dose: 4 mg Oxybutynin Chloride (Oxybutynin Chloride 5 Mg Tablet) 5 mg PO BID [facility] Last Admin: 04/10/23 09:00 Dose: 5 mg Polyethylene Glycol (Polyethylene Glycol 3350 17 Gm Powd.Pack) 17 gm PO DAILY PRN PRN Reason: Constipation Last Admin: 04/10/23 09:30 Dose: 17 gm Prazosin HCl (Prazosin Hcl 1 Mg Capsule) 2 mg PO BEDTIME MELONY; Protocol Last Admin: 04/09/23 21:23 Dose: 2 mg Risperidone (Risperidone 3 Mg Tablet) 3 mg PO BEDTIME [facility] Last Admin: 04/09/23 21:24 Dose: 3 mg Risperidone (Risperidone 3 Mg Tablet) 3 mg PO DAILY [facility] Last Admin: 04/10/23 09:03 Dose: 3 mg Senna (Sennosides 8.6 Mg Tablet) 17.2 mg PO BID PRN PRN Reason: Constipation Simethicone (Simethicone 80 Mg Tab.Chew) 80 mg PO Q8H PRN PRN Reason: Flatulence Allergies Allergies Allergy/AdvReac Type Severity Reaction Status Date / Time almotriptan Allergy Unknown Verified 03/30/23 11:28 aspirin Allergy Unknown Verified 03/30/23 11:28 diphenhydramine Allergy Unknown Verified 03/30/23 11:28 [From Benadryl] oxycodone Allergy Unknown Verified 03/30/23 11:28 pseudoephedrine Allergy Unknown Verified 03/30/23 11:28 mushroom AdvReac Abdominal Verified 03/30/23 11:28 Pain red dye Allergy Unknown Uncoded 03/29/23 17:52 sulpha drugs Allergy Unknown Uncoded 03/29/23 17:52 Assessment & Plan Assessment & Plan (1) Bipolar 1 disorder, mixed, mild: Status: Acute Code(s): F31.61 - Bipolar disorder, current episode mixed, mild Plan The patient is an elderly female with a prior history of bipolar disorder with several prior admissions into the hospital for psychosis and manic decompensation. The patient was initially brought to the emergency room of another hospital with signs and symptoms of gay and psychosis. Plan 1. Gather collateral information, we will call her daughter and find out what is her baseline. 2. Continue Risperdal 3 mg p.o. b.i.d. and other neuroleptics. I offered Invega Sustenna instead of Risperdal p.o. 3. Continue medical workout. 4. Reassessment with results. 5. Hospital consult due to increased blood pressure. 6. Depakote level and other lab work for tomorrow morning. 7. Prazosin 2 mg po qhs for night chua on 04/02. 8. Neurology consult. Suggested Sinemet Reason for continued inpatient stay Substantial Risk for: inability to function, rapid decompensation and med/psych decompensation Time Spent With Patient Time: Total time managing care of this patient today _20___ minutes.
[2023-04-10 16:08] VITALS: BP 126/73; PULSE 78; RESP 18; TEMP 36.4; O2SAT 93
[2023-04-10] MEDS: Sennosides 8.6 MG TABLET 17.2 MG PO (16:28)
[2023-04-10] MEDS: Calcium Carbonate 750 MG TAB.CHEW PO (17:43)
[2023-04-11] MEDS: Omeprazole 20 MG CAPSULE.DR PO (05:22)
[2023-04-11 08:00] VITALS: BP 140/65; PULSE 70; RESP 18; TEMP 35.9; O2SAT 95
[2023-04-11] MEDS: lamoTRIgine 100 MG, lamoTRIgine 50 MG 150 MG PO (09:06)
[2023-04-11] MEDS: amLODIPine Besylate 10 MG TABLET PO (09:07)
[2023-04-11] MEDS: Ferrous Sulfate 324 MG TABLET.DR PO (09:07)
[2023-04-11] MEDS: Carbidopa/Levodopa 25/100 TABLET 1 TAB PO (09:07)
[2023-04-11] MEDS: levETIRAcetam 1,000 MG TABLET 1000 MG PO (09:07)
[2023-04-11] MEDS: oxyBUTYnin chloride 5 MG TABLET PO (09:07)
[2023-04-11] MEDS: Divalproex Sodium ER 250 MG TAB.ER.24H PO (09:07)
[2023-04-11] MEDS: Multivitamin TABLET 1 TAB PO (09:07)
[2023-04-11] MEDS: risperiDONE 3 MG TABLET PO (09:08)
--- NOTE | 2023-04-11 10:25 | P.DS_ITS ---
DS: Providers Provider Date of Service: 04/11/23 Date of admission: 03/29/23 17:27 Date of discharge: 04/11/23 Primary care physician: Unknown Physician Consults: 03/29/23 17:44 Consult to Hospitalist Routine Comment: Consulting Provider: Hospitalist Reason For Exam: admission physical 04/04/23 16:46 Consult to Neurology Routine Consulting Provider: [facility] Reason for consultation: CT showing hydrocephalus, ?significance/treatment/additional workup DS: Diagnosis Discharge Diagnosis (1) Bipolar 1 disorder, mixed, mild: Status: Acute DS: Medications Discharge Medications Home Medications: Home Medications Medication Instructions Recorded Confirmed Lidocaine Viscous 15 ml buccal Q6-8H PRN Pain 03/30/23 03/30/23 Maalox Plus 30 ml PO Q6-8H PRN Indigestion 03/30/23 03/30/23 Multi Minerals 1 tab PO DAILY 03/30/23 03/30/23 Risperdal 3 mg DAILY 03/30/23 03/30/23 Tums 500 500 mg PO PRN Heartburn 03/30/23 Vitamin 03/30/23 acetaminophen 2 tab PO Q4-5H PRN Fever Or Pain 03/30/23 03/30/23 amlodipine 5 mg PO DAILY 03/30/23 03/30/23 bethanechol chloride 10 mg TID 03/30/23 03/30/23 calcium carbonate 500 mg PO Q3-6H PRN Heartburn 03/30/23 03/30/23 famotidine 20 mg PO DAILY@0630 03/30/23 03/30/23 ferrous sulfate 325 mg PO DAILY 03/30/23 03/30/23 hydralazine 10 mg tablet 10 mg PO Q6-8H PRN Hypertension 03/30/23 03/30/23 lamotrigine 100 mg tablet 100 mg PO QPM 03/30/23 03/30/23 (Lamictal) lamotrigine 150 mg tablet 150 mg PO DAILY 03/30/23 03/30/23 (Lamictal) lamotrigine 25 mg tablet (Lamictal) 25 mg PO QPM 03/30/23 03/30/23 levetiracetam 1,000 mg tablet 1,000 mg PO BID 03/30/23 03/30/23 (Keppra) loperamide 2 mg PO Q6-8H PRN Diarrhea 03/30/23 03/30/23 melatonin 12 mg PO QPM 03/30/23 03/30/23 mirtazapine 7.5 mg PO QPM 03/30/23 03/30/23 ondansetron 4 mg PO Q6-8H PRN Nausea And 03/30/23 03/30/23 Vomiting oxybutynin chloride 5 mg PO BID 03/30/23 03/30/23 polyethylene glycol 3350 17 g PO DAILY PRN Constipation 03/30/23 03/30/23 quetiapine 50 mg tablet (Seroquel) 50 mg PO QPM 03/30/23 03/30/23 senna 2 tab PO BID PRN Constipation 03/30/23 03/30/23 simethicone 80 mg PO Q8-10H PRN Flatulence 03/30/23 03/30/23 Mental Status Exam Mental Status Exam Patient Appearance: Well Grooomed and Appropriate Patient Orientation: Person and Situation Level of Consciousness: Awake and Appropriate Patient Behavior: Guarded and Passive Mood Description: Withdrawn Affect Description: Constricted Patient Cognition Impaired: Yes Ability to Follow Directions: Good Speech Pattern: Clear Hallucinations: None Delusions: Not Present Thought Process: Linear Thought Content: positive for [place] and positive for Circumstantial Judgement: Fair Data Imaging Diagnostic Imaging Impressions Hip/Pelvis X-Ray 04/04/23 09:59 IMPRESSION: * Subtle lucency involving the right femoral head only appreciated on this single view, unclear if this could potentially reflect a nutrient channel however a nondisplaced fracture would be difficult to exclude. Consider a CT hip for further evaluation. * Mild degenerative changes of the hips. Head CT 04/04/23 10:56 IMPRESSION: No acute intracranial hemorrhage or territorial infarction. Prominence of the lateral and third ventricles with a narrow callosal angle and an increased Smith index. Imaging findings may reflect normal pressure hydrocephalus and clinical correlation is recommended. Hip CT 04/06/23 21:15 IMPRESSION: 1. No acute fracture or dislocation. No evidence of avascular necrosis. 2. Partially visualized and distended urinary bladder. DS: Summary Hospital Course Hospital Course: The patient was initially admitted to this unit from another facility for exacerbation of psychotic symptoms elicited by a visual and auditory hallucinations and disorganized thought process. The patient carries a diagnosis of schizoaffective disorder bipolar type. Please see the HPI note of the admission note for further details. On admission, we restarted his regular medications, the patient suffers from seizure disorder and she has several antiseizure medications. We consulted with neurology also due to involuntary movements and they suggested to start Sinemet. The patient's mood improved, she was alert cooperative and pleasant, she denies exacerbation of psychosis or resolution of visual hallucinations. She was able to participate in groups, she was future oriented and she was back at baseline so we decided to start discharge planning back to her correction facility. Time spent discussing smoking cessation with patient: 3 to 10 minutes Status at Discharge Cognitive/behavioral status at discharge: Improved Functional status at discharge: independent ambulation Overall status at discharge: patient is back to baseline Time Spent with Patient Time attestation: Total time managing care of this patient today __20__ minutes. Time spent: Less than 30 minutes Discharge Plan Discharge Anticipated Discharge Date/Time: 04/11/23 10:28 Patient Disposition: Xfer SNF Discharge Diagnosis: Bipolar disorder Parkinsonism Referrals: Physician,Unknown J [Primary Care Provider] - 1 Week Discharge Medications: New acetaminophen 325 mg Tablet 650 mg PO Q6H PRN (Reason: Headache/Pain Mild Scale (1-3)) Qty: 30 0RF prazosin 1 mg Capsule 2 mg PO BEDTIME Qty: 30 0RF Protocol: Hold for SBP< HOLD for SBP < : 90 lorazepam 0.5 mg Tablet 0.5 mg PO Q8H PRN (Reason: Anxiety) 30 Days Qty: 30 0RF lisinopril 10 mg Tablet 10 mg PO BEDTIME Qty: 30 0RF Protocol: Hold for SBP< HOLD for SBP < : 90 omeprazole 20 mg Capsule,Delayed Release(Dr/Ec) 20 mg PO DAILY@0630 Qty: 30 0RF carbidopa-levodopa 25-100 mg Tablet 1 tab PO BID Qty: 60 0RF divalproex 250 mg Tablet Extended Release 24 Hr 250 mg PO BID Qty: 60 0RF Continued amlodipine tablet 5 mg PO DAILY lamotrigine [Lamictal] 150 mg Tablet 150 mg PO DAILY hydralazine 10 mg Tablet 10 mg PO Q6-8H PRN (Reason: Hypertension) Rx Instructions: Give for SBP > 170 lamotrigine [Lamictal] 25 mg Tablet 25 mg PO QPM Rx Instructions: Give with 100mg at HS for TD 125 mg. lamotrigine [Lamictal] 100 mg Tablet 100 mg PO QPM Rx Instructions: Give with 25 mg. tab at HS for TD 125 mg. levetiracetam [Keppra] 1,000 mg Tablet 1,000 mg PO BID Lidocaine Viscous solution 15 ml buccal Q6-8H PRN (Reason: Pain) Rx Instructions: swish and spit Maalox Plus suspension 30 ml PO Q6-8H PRN (Reason: Indigestion) Multi Minerals tablet 1 tab PO DAILY Risperdal tablet 3 mg DAILY Tums 500 tablet 500 mg PO PRN (Reason: Heartburn) calcium carbonate tablet 500 mg PO Q3-6H PRN (Reason: Heartburn) ferrous sulfate tablet 325 mg PO DAILY loperamide capsule 2 mg PO Q6-8H PRN (Reason: Diarrhea) melatonin tablet 12 mg PO QPM ondansetron tablet 4 mg PO Q6-8H PRN (Reason: Nausea And Vomiting) oxybutynin chloride tablet 5 mg PO BID polyethylene glycol 3350 powder 17 g PO DAILY PRN (Reason: Constipation) senna 8.6 mg tablet 2 tab PO BID PRN (Reason: Constipation) simethicone tablet 80 mg PO Q8-10H PRN (Reason: Flatulence) Changed bethanechol chloride tablet 10 mg PO TID 30 Days Qty: 90 0RF Discontinued acetaminophen 350 mg tablet 2 tab PO Q4-5H MDD 3000mg/day PRN (Reason: Fever Or Pain) quetiapine [Seroquel] 50 mg Tablet 50 mg PO QPM Vitamin famotidine tablet 20 mg PO DAILY@0630 mirtazapine tablet 7.5 mg PO QPM Discharge Orders: Discharge Order (Routine); Ordered 04/11/23 Ordered By: Sagar Peng Diet: Advance to usual diet Activity on Discharge: As tolerated Stand Alone Forms: Patient Portal Discharge page Care Plan Goals: Care plan goals achieved in this admission Health Concerns: Continue treatment with outpatient provider Plan of Treatment: Continue treatment with outpatient providers Assessment: Elderly female with a past history of bipolar disorder who was admitted for exacerbation of psychosis in the context of medical problems. At this moment safe to be discharged to the community.
[2023-04-11] MEDS: Calcium Carbonate 750 MG TAB.CHEW PO (10:56)
[2023-04-11] MEDS: Ondansetron ODT 4 MG TAB.RAPDIS TRANSLINGU (10:56)
== END 2023-04-11 11:10 | disposition skilled nursing facility (03) | DRG 885 ==
PROVIDERS: Psychiatry & Neurology Psychiatry; Admitting Provider Psychiatry & Neurology Psychiatry; Visit Provider Psychiatry & Neurology Psychiatry
DX: F31.61 Bipolar disorder, current episode mixed, mild (principal); I12.9 Hypertensive chronic kidney disease with stage 1 through stage 4 chronic kidney disease, or unspecified chronic kidney disease; N18.30 Chronic kidney disease, stage 3 unspecified; G20 Parkinson's disease; J44.9 Chronic obstructive pulmonary disease, unspecified; G40.909 Epilepsy, unspecified, not intractable, without status epilepticus; Z87.891 Personal history of nicotine dependence; Z79.899 Other long term (current) drug therapy
CPT/HCPCS: 36415; 70450; 73502; 73700; 80048; 80053; 80061; 80076; 80164; 81001; 83036; 85025